=== PATIENT | female | born 1935 | race Caucasian/White ===

== ENCOUNTER 2022-09-24 15:17 | Emergency (ER) | payer MEDICARE ==
--- NOTE | 2022-09-24 15:25 | ERPHSYRPT ---
- History of Present Illness Time Seen by Provider: 09/24/22 15:24 Historian: patient, family Exam Limitations: no limitations Physician History: This is an 87-year-old white female patient of Dr. Gilbert and is a resident at [facility] who was brought to the urgent care center by her daughter because of soreness in her neck and generalized chest. Patient has no diagnosed coronary artery disease but felt the symptoms began this morning. Patient took some Tylenol and there was some mild improvement with the Tylenol. Patient definitely states she does not have chest pain is just a soreness. Patient uses a wheelchair for transportation. Urgent care sent the patient to our emergency department for further evaluation and management. Patient has denied cough. She denies shortness of breath. She denies fever. She has no abdominal pain. Activities at Onset: none Quality: other (Soreness) Location: other (Generalized) Chest Pain Radiation: neck Severity of Pain-Max: mild Severity of Pain-Current: mild Modifying Factors: Improves With: nothing Associated Symptoms: denies symptoms Prior Chest Pain/Cardiac Workup: no prior chest pain Nitro Today/Relief: no nitro taken today Aspirin Treatment Today: no aspirin today Allergies/Adverse Reactions: No Known Drug Allergies Allergy (Unverified 09/24/22 15:20) Travel Risk - International Travel Have you traveled outside of the country in past 3 weeks: No - Coronavirus Screening Are you exhibiting any of the following symptoms?: No Close contact with a COVID-19 positive Pt in past 14-21 Days: No - Review of Systems Constitutional: No Symptoms Eyes: No Symptoms Ears, Nose, & Throat: No Symptoms Respiratory: No Symptoms Cardiac: Chest Pain Abdominal/Gastrointestinal: No Symptoms Genitourinary Symptoms: No Symptoms Musculoskeletal: Neck Pain Skin: No Symptoms Neurological: No Symptoms, Sensory Changes Psychological: No Symptoms Endocrine: No Symptoms Hematologic/Lymphatic: No Symptoms Immunological/Allergic: No Symptoms All Other Systems: Reviewed and Negative - Past Medical History Pertinent Past Medical History: Yes - Nursing Vital Signs Nursing Vital Signs: Initial Vital Signs Temperature 98.6 F 09/24/22 15:18 Pulse Rate 96 H 09/24/22 15:18 Respiratory Rate 17 09/24/22 15:18 Blood Pressure 167/112 09/24/22 15:18 O2 Sat by Pulse Oximetry 98 09/24/22 15:18 Pain Scale Pain Intensity [Chest] 8 Pain Intensity 8 - Physical Exam General Appearance: no apparent distress, alert, anxiety Eye Exam: PERRL/EOMI, eyes nml inspection Ears, Nose, Throat Exam: normal ENT inspection, moist mucous membranes Neck Exam: normal inspection, non-tender, supple, full range of motion Respiratory Exam: normal breath sounds, lungs clear, airway intact, No chest tenderness, No respiratory distress Cardiovascular Exam: regular rate/rhythm, normal heart sounds, normal peripheral pulses Gastrointestinal/Abdomen Exam: soft, normal bowel sounds, No tenderness Pelvic Exam: not done Rectal Exam: not done Back Exam: normal inspection, normal range of motion, No CVA tenderness, No ve rtebral tenderness Extremity Exam: normal inspection, normal range of motion, pelvis stable Neurologic Exam: alert, oriented x 3, cooperative, 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 No acute ischemic changes on today's twelve-lead EKG.) Ordered Tests: Active Orders 24 hr Category Date Time Status Carpet Repairer STAT Care 09/24/22 15:33 Active EKG-ER Only STAT Care 09/24/22 15:33 Active IV Insertion STAT Care 09/24/22 15:33 Active Pulse Oximetry (ED) STAT Care 09/24/22 15:33 Active CHEST 1 VIEW (PORTABLE) Stat Exams 09/24/22 15:33 Taken CHEST WITH CONTRAST [CT] Stat Exams 09/24/22 16:59 Completed CBC W DIFF Stat Lab 09/24/22 15:50 Completed CMP Stat Lab 09/24/22 15:50 Completed D-DIMER QUANTITATIVE Stat Lab 09/24/22 15:50 Completed NT PRO BNPII Stat Lab 09/24/22 15:50 Completed TROPONIN Q4H Lab 09/24/22 15:50 Completed TROPONIN Q4H Lab 09/24/22 19:45 Ordered TROPONIN Q4H Lab 09/24/22 23:45 Ordered Medication Summary Generic Name Dose Route Start Last Admin Trade Name Freq PRN Reason Stop Dose Admin Sodium Chloride 500 mls @ 50 mls/hr 09/24/22 17:00 09/24/22 18:08 Sodium Chloride 0.9% 500 Ml IV 10/24/22 16:59 50 mls/hr .Q10H KOKO Administration Discontinued Medications Generic Name Dose Route Start Last Admin Trade Name Palmira PRN Reason Stop Dose Admin Acetaminophen 650 mg 09/24/22 17:52 09/24/22 18:08 Acetaminophen 325 Mg Tablet PO 09/24/22 17:53 650 mg STAT ONE Administration Acetaminophen Confirm 09/24/22 18:02 Acetaminophen 325 Mg Tablet Administered 09/24/22 18:03 Dose 650 mg .ROUTE .STK-MED ONE Furosemide 40 mg 09/24/22 16:58 09/24/22 18:08 Furosemide 40 Mg/4 Ml Vial IV 09/24/22 16:59 40 mg STAT ONE Administration Furosemide Confirm 09/24/22 18:02 Furosemide 40 Mg/4 Ml Vial Administered 09/24/22 18:03 Dose 40 mg .ROUTE .STK-MED ONE Lab/Rad Data: Laboratory Result Diagrams 09/24/22 15:50 09/24/22 15:50 Laboratory Results 09/24/22 09/24/22 09/24/22 Range/Units 15:50 15:50 15:50 WBC (4.0-10.5) x10^3/uL RBC (4.1-5.4) x10^6/uL Hgb (12.0-16.0) g/dL Hct (35-47) % MCV (78-100) fL MCH (26-32) pg MCHC (32-36) g/dL RDW (11.5-14.0) % Plt Count (150-450) x10^3/uL MPV (7.5-11.0) fL Gran % (36.0-66.0) % Immature Gran % (Auto) (0.00-0.4) % Nucleat RBC Rel Count (0.00-0.1) % Eos # (Auto) (0-0.5) x10^3/uL Immature Gran # (Auto) (0.00-0.03) x10^3u/L Absolute Lymphs (auto) (1.0-4.6) x10^3/uL Absolute Monos (auto) (0.0-1.3) x10^3/uL Absolute Nucleated RBC (0.00-0.01) x10^3u/L Lymphocytes % (24.0-44.0) % Monocytes % (0.0-12.0) % Eosinophils % (0.00-5.0) % Basophils % (0.0-0.4) % Absolute Granulocytes (1.4-6.9) x10^3/uL Basophils # (0-0.4) x10^3/uL D-Dimer 0.77 H* (0.0-0.50) mg/L Sodium (137-145) mmol/L Potassium (3.5-5.1) mmol/L Chloride (98-107) mmol/L Carbon Dioxide (22-30) mmol/L Anion Gap (5-15) MEQ/L BUN (7-17) mg/dL Creatinine (0.52-1.04) mg/dL Estimated GFR ML/MIN Glucose (74-106) mg/dL Calcium (8.4-10.2) mg/dL Total Bilirubin (0.2-1.3) mg/dL AST (14-36) U/L ALT (0-35) U/L Alkaline Phosphatase (38-126) U/L Troponin I < 0.012 (0.000-0.034) ng/mL NT-Pro-B Natriuret Pep 1500 (<300) pg/mL Serum Total Protein (6.3-8.2) g/dL Albumin (3.5-5.0) g/dL 09/24/22 09/24/22 Range/Units 15:50 15:50 WBC 9.5 (4.0-10.5) x10^3/uL RBC 3.93 L (4.1-5.4) x10^6/uL Hgb 12.6 (12.0-16.0) g/dL Hct 39.2 (35-47) % MCV 99.7 (78-100) fL MCH 32.1 H (26-32) pg MCHC 32.1 (32-36) g/dL RDW 13.6 (11.5-14.0) % Plt Count 304 (150-450) x10^3/uL MPV 10.1 (7.5-11.0) fL Gran % 78.4 H (36.0-66.0) % Immature Gran % (Auto) 0.4 (0.00-0.4) % Nucleat RBC Rel Count 0.0 (0.00-0.1) % Eos # (Auto) 0.07 (0-0.5) x10^3/uL Immature Gran # (Auto) 0.04 H (0.00-0.03) x10^3u/L Absolute Lymphs (auto) 1.20 (1.0-4.6) x10^3/uL Absolute Monos (auto) 0.69 (0.0-1.3) x10^3/uL Absolute Nucleated RBC 0.00 (0.00-0.01) x10^3u/L Lymphocytes % 12.6 L (24.0-44.0) % Monocytes % 7.2 (0.0-12.0) % Eosinophils % 0.7 (0.00-5.0) % Basophils % 0.7 (0.0-0.4) % Absolute Granulocytes 7.47 H (1.4-6.9) x10^3/uL Basophils # 0.07 (0-0.4) x10^3/uL D-Dimer (0.0-0.50) mg/L Sodium 138 (137-145) mmol/L Potassium 4.6 (3.5-5.1) mmol/L Chloride 99 (98-107) mmol/L Carbon Dioxide 30 (22-30) mmol/L Anion Gap 14.1 (5-15) MEQ/L BUN 17 (7-17) mg/dL Creatinine 0.89 (0.52-1.04) mg/dL Estimated GFR > 60.0 ML/MIN Glucose 107 H (74-106) mg/dL Calcium 9.3 (8.4-10.2) mg/dL Total Bilirubin 1.00 (0.2-1.3) mg/dL AST 49 H (14-36) U/L ALT 22 (0-35) U/L Alkaline Phosphatase 93 (38-126) U/L Troponin I (0.000-0.034) ng/mL NT-Pro-B Natriuret Pep (<300) pg/mL Serum Total Protein 8.3 H (6.3-8.2) g/dL Albumin 4.6 (3.5-5.0) g/dL - Progress Progress: improved, re-examined Air Movement: good Progress Note: 09/24/22 16:13 This patient's medical issue is 1 of moderate complexity. The level of complexity and the work-up performed is based on the review of the patient's past medical history, review of the patient's medication list, review of the patient's drug allergy list, history of present illness and the findings on physical examination. The work-up includes twelve-lead EKG, chest x-ray, D- dimer, troponin, CBC and CMP. 09/24/22 18:42 Review of the work-up results showed an elevated D-dimer and therefore we ordered a CTA of the chest. The results of this study shows no pulmonary embolus. There is right lung base consolidation probably corresponds to the nodule versus collapse versus infiltrate. We will treat this patient with an antibiotic of Rocephin intravenously followed by outpatient Levaquin for 7 days. Patient is to call her primary care provider to follow-up for further evaluation management. Blood Culture(s) Obtained: No Antibiotics given: Yes Counseled pt/family regarding: lab results, diagnosis, need for follow-up, rad results Medical Desision Making - Independent Historian Additional History obtained from: Child - Diagnostic Testing Diagnostic test were ordered, analyzed, and reviewed by me: Yes Radiological Interpretation: Interpreted by me, Reviewed by me, Teleradiologist Report - Risk of complications The pt has a mod risk of morbidity or mortality based on: Need for prescription drug management - Departure Departure Disposition: Home Clinical Impression: Right lower lobe pulmonary infiltrate Condition: Stable Critical Care Time: No Additional Instructions: Use Tylenol 650 mg orally every 6 hours for pain control. Take the antibiotics as prescribed. Call your primary care provider on 09/24/2022 for follow-up appointment and further management. Return to the emergency department if symptoms worsen Prescriptions: Levofloxacin [Levaquin 500 MG Tablet] 500 mg PO DAILY #7 tablet
[2022-09-24 16:11] LABS: Absolute Neutrophil Ct (ANC) 7.47 x10^3/uL (1.4-6.9); BASOPHIL % 0.7 % (0.0-0.4); Basophil (Absolute #) 0.07 x10^3/uL (0-0.4); Eosinophil % 0.7 % (0.00-5.0); Eosinophil (Absolute #) 0.07 x10^3/uL (0-0.5); Hematocrit 39.2 % (35-47); Hemoglobin 12.6 g/dL (12.0-16.0); IMMATURE GRAN # 0.04 x10^3u/L (0.00-0.03); IMMATURE GRAN % 0.4 % (0.00-0.4); Lymphocytes % 12.6 % (24.0-44.0); Mean Cell Volume 99.7 fL (78-100); Mean Corpuscular Hemoglobin 32.1 pg (26-32); Mean Corpuscular Hgb Concent. 32.1 g/dL (32-36); Mean Platelet Volume 10.1 fL (7.5-11.0); Monocyte (Absolute #) 0.69 x10^3/uL (0.0-1.3); Monocytes % 7.2 % (0.0-12.0); Neutrophil % 78.4 % (36.0-66.0); Platelet Count 304 x10^3/uL (150-450); Red Blood Count 3.93 x10^6/uL (4.1-5.4); Red Cell Distribution Width 13.6 % (11.5-14.0); White Blood Count 9.5 x10^3/uL (4.0-10.5)
[2022-09-24 16:13] LABS: ALBUMIN 4.6 g/dL (3.5-5.0); ALKALINE PHOSPHATASE 93 U/L (38-126); ANION GAP 14.1 MEQ/L (5-15); BLOOD UREA NITROGEN 17 mg/dL (7-17); CHLORIDE 99 mmol/L (98-107); Calcium 9.3 mg/dL (8.4-10.2); Carbon Dioxide 30 mmol/L (22-30); Creatinine 1 0.89 mg/dL (0.52-1.04); EST GLOMERULAR FILTRATION RATE > 60.0 ML/MIN; Glucose 107 mg/dL (74-106); Potassium 4.6 mmol/L (3.5-5.1); SGOT/AST 49 U/L (14-36); SGPT/ALT 22 U/L (0-35); SODIUM 138 mmol/L (137-145); Total Protein 8.3 g/dL (6.3-8.2)
[2022-09-24] MEDS ORDERED: Lasix 40 MG/4 ML IV ONE (16:58)
[2022-09-24] MEDS ORDERED: Sodium Chloride 0.9% 500 ML 500 ML IV SCH (17:00)
[2022-09-24] MEDS ORDERED: TYLENOL 325 MG PO ONE (17:52)
[2022-09-24] MEDS ORDERED: TYLENOL 325 MG ONE (18:02)
[2022-09-24] MEDS ORDERED: Lasix 40 MG/4 ML ONE (18:02)
[2022-09-24] MEDS ORDERED: Sodium Chloride 0.9% 500 ML 500 ML IV ONE (18:02)
[2022-09-24 18:18] VITALS: BP 170/101
--- NOTE | 2022-09-24 18:38 | XRAY ---
CLINICAL HISTORY:CP with elevated D-dimer; COMPARISON:None; TECHNIQUES:Axial CTA images of the chest with intravenous contrast using a pulmonary embolism protocol as per angiographic protocol. 100 cc of Isovue 370 mg was given as IV contrast. Three-dimensional MIP-rendered reformations in Coronal and Sagittal planes were performed, reconstructed and reviewed. CTDI: 52.83 mGy, DLP: 924.51 mGy*cm; FINDINGS: No evidence of central or segmental pulmonary embolism is seen. There is no evidence of aneurysm or dissection of the thoracic aorta. Consolidation in the right lung base measuring 3.2 x 1.5 cm, may probably correspond to nodule vs. collapse/ infiltrate, which requires clinical and laboratory confirmation. IMPRESSION: Negative study for pulmonary embolism. Right lung base consolidation, may probably correspond to nodule vs. collapse/ infiltrate, which requires clinical and laboratory confirmation. Electronically Signed by: Linda Mack MD. ( 09/24/2022 17:29:22 GREY GOODS EXAMINER)
[2022-09-24 19:11] VITALS: PULSE 98; O2SAT 97
--- NOTE | 2022-09-24 20:34 | XRAY ---
Indication: Chest pain. Comparison: None Portable chest inflated and clear. Heart not enlarged. Incidental chunky right paratracheal and smaller bilateral hilar calcified nodes. Bony thorax intact with osteopenia, mild degenerative changes, and mild levoscoliosis. Impression: Nonacute chest with chronic features.
== END 2022-09-24 19:12 | disposition home or self-care (01) ==
LOC: ED 15:17
DX: R91.8 Other nonspecific abnormal finding of lung field (principal); M54.2 Cervicalgia; R79.89 Other specified abnormal findings of blood chemistry; R07.9 Chest pain, unspecified; Z79.899 Other long term (current) drug therapy; Z20.828 Contact with and (suspected) exposure to other viral communicable diseases
CPT/HCPCS: 36000; 36415; 71045; 71260; 80053; 83880; 84484; 85025; 85379; 93005; 93041; 94760; 96374; 99284; J1940; A9270-GY

== ENCOUNTER 2023-12-10 20:51 | Observation (INO) | payer MEDICARE ==
--- NOTE | 2023-12-10 21:22 | ERPHSYRPT ---
- History of Present Illness Time Seen by Provider: 12/10/23 20:58 Source: patient Exam Limitations: no limitations Physician History: Pt states she fell in her bedroom and does not know why she fell; occurred about 1 hour ago. Pt denies chest pain, shortness of air, headache, neck pain, fever, abdominal pain. Allergies/Adverse Reactions: No Known Drug Allergies Allergy (Unverified 05/05/23 10:28) Hx Tetanus, Diphtheria Vaccination/Date Given: No Hx Influenza Vaccination/Date Given: Yes Hx Pneumococcal Vaccination/Date Given: No - Review of Systems Constitutional: No Fever Respiratory: No Dyspnea Cardiac: No Chest Pain Abdominal/Gastrointestinal: No Abdominal Pain, No Nausea, No Vomiting Musculoskeletal: No Back Pain, No Neck Pain Neurological: No Headache - Past Medical History Pertinent Past Medical History: Yes - Past Surgical History Past Surgical History: Yes Other Surgical History: left breast biopsy that was negative - Social History Smoking Status: Never smoker Exposure to second hand smoke: No Drug Use: none Patient Lives Alone: No (lives at [facility]) - Nursing Vital Signs Nursing Vital Signs: Initial Vital Signs Temperature 98 F 12/10/23 20:52 Pulse Rate 97 H 12/10/23 20:52 Respiratory Rate 14 12/10/23 20:52 Blood Pressure 114/95 12/10/23 20:52 O2 Sat by Pulse Oximetry 95 12/10/23 20:52 Pain Scale Pain Intensity 0 - [place] Coma Score Best Eye Response ([place]): (4) open spontaneously Best Verbal Response ([place]): (5) oriented Best Motor Response ([place]): (6) obeys commands [place] Total: 15 - Physical Exam General Appearance: alert Head Injury: no evidence of injury Eye Exam: eyes nml inspection ENT Exam: airway nml, hearing grossly normal Neck Exam: normal inspection, No tenderness Respiratory/Chest Exam: other (Bronchial B.S. over all acuña.) Cardiovascular Exam: No regular rate/rhythm (irregularly irregular rhythm) Gastrointestinal Exam: normal bowel sounds Back Exam: No vertebral tenderness Extremity Exam: normal range of motion Neurologic Exam: alert, cooperative, sensation nml, No motor deficits Skin Exam: warm, dry, other (mild tenderness over bruising over left hip, left knee, lower right leg and left hand.) SpO2 Interpretation: normal SpO2: 95 O2 Delivery: Room Air - Course EKG Interpreted by Me: RATE (99), A-fib, Other (QTc = 452; unifocal PVC's.) - Radiology Exams Left Femur X-ray Interpretation: Interpreted by me, No Fracture Right Lower Leg X-ray Interpretation: Interpreted by me, No Fracture Left Knee X-ray Interpretation: Interpreted by me, No Fracture Chest X-ray Interpretation: Teleradiologist Report (Prominent and coarse bronchovascular markings in both lungs. See rest of report.) Pelvis X-ray Interpretation: Teleradiologist Report (No evidence of fracture in the provided view. See rest of report.) Left Hand X-ray Interpretation: Teleradiologist Report (No acute fracture or disloction is noted.) Ordered Tests: Active Orders 24 hr Category Date Time Status EKG-ER Only STAT Care 12/10/23 21:19 Active IV Insertion STAT Care 12/10/23 21:19 Active CHEST 2 VIEWS (PA AND LAT) Stat Exams 12/10/23 21:19 Completed FEMUR Stat Exams 12/10/23 21:21 Taken HAND (MINIMUM 3 VIEWS) Stat Exams 12/10/23 21:21 Completed KNEE (3 VIEWS) Stat Exams 12/10/23 21:21 Taken LOWER LEG Stat Exams 12/10/23 21:22 Taken PELVIS (1 OR 2 VIEWS) Stat Exams 12/10/23 21:22 Completed AMYLASE Stat Lab 12/10/23 21:47 Completed CBC W DIFF Stat Lab 12/10/23 21:47 Completed CMP Stat Lab 12/10/23 21:47 Completed CULTURE,URINE Stat Lab 12/10/23 21:47 Received LIPASE Stat Lab 12/10/23 21:47 Completed MAGNESIUM Stat Lab 12/10/23 21:47 Completed PROTIME WITH INR Stat Lab 12/10/23 21:47 Completed PTT Stat Lab 12/10/23 21:47 Completed TROPONIN Q4H Lab 12/10/23 21:47 Completed TROPONIN Q4H Lab 12/11/23 01:30 Ordered TROPONIN Q4H Lab 12/11/23 05:30 Ordered UA W/RFX UR CULTURE Stat Lab 12/10/23 21:47 Completed Medication Summary Generic Name Dose Route Start Last Admin Trade Name Freq PRN Reason Stop Dose Admin Sodium Chloride 1,000 mls @ 100 mls/hr 12/10/23 21:30 12/10/23 21:28 Sodium Chloride 0.9% 1000 Ml IV 01/09/24 21:29 100 mls/hr .Q10H KOKO Administration Discontinued Medications Generic Name Dose Route Start Last Admin Trade Name Palmira PRN Reason Stop Dose Admin Sodium Chloride 1,000 mls @ 999 mls/hr 12/10/23 23:36 12/10/23 23:40 Sodium Chloride 0.9% 1000 Ml IV 12/11/23 00:36 Not Given .Q1H1M STA Ceftriaxone Sodium 1 gm in 100 mls @ 200 mls/hr 12/10/23 23:53 12/11/23 00:00 Rocephin 1 Gm / 100 Ml Nacl IV 12/11/23 00:22 200 mls/hr STAT ONE 200 mls/hr Administration Ceftriaxone Sodium Confirm 12/10/23 23:58 Rocephin 1 Gm / 100 Ml Nacl Administered 12/10/23 23:59 Dose 1 gm in 100 mls @ ud IV .STK-MED ONE Lab/Rad Data: Laboratory Result Diagrams 12/10/23 21:47 12/10/23 21:47 Laboratory Results 12/10/23 12/10/23 12/10/23 Range/Units 21:47 21:47 21:47 WBC (3.98-10.04) x10^3/uL RBC (3.93-5.22) x10^6/uL Hgb (11.2-15.7) g/dL Hct (34.1-44.9) % MCV (79.4-94.8) fL MCH (25.6-32.2) pg MCHC (32.2-35.5) g/dL RDW (11.7-14.4) % Plt Count (182-369) x10^3/uL MPV (9.4-12.3) fL Gran % (34.0-71.1) % Immature Gran % (Auto) (0.001-0.429) % Nucleat RBC Rel Count (0.00-0.2) % Eos # (Auto) (0.04-0.36) x10^3/uL Immature Gran # (Auto) (0.001-0.031) x10^3u/L Absolute Lymphs (auto) (1.18-3.74) x10^3/uL Absolute Monos (auto) (0.24-0.86) x10^3/uL Absolute Nucleated RBC (0.00-0.012) x10^3u/L Lymphocytes % (19.3-51.7) % Monocytes % (4.7-12.5) % Eosinophils % (0.7-5.8) % Basophils % (0.1-1.2) % Absolute Granulocytes (1.56-6.13) x10^3/uL Basophils # (0.01-0.08) x10^3/uL PT 11.7 (9.4-12.5) SECONDS INR 1.08 (0.8-3.0) APTT 31.6 (25.1-36.5) SECONDS Sodium (135-145) mmol/L Potassium (3.5-5.1) mmol/L Chloride (98-107) mmol/L Carbon Dioxide (22-30) mmol/L Anion Gap (5-15) MEQ/L BUN (7-17) mg/dL Creatinine (0.52-1.04) mg/dL Estimated GFR ML/MIN Glucose (74-106) mg/dL Calcium (8.4-10.2) mg/dL Magnesium 2.0 (1.6-2.3) mg/dL Total Bilirubin (0.2-1.3) mg/dL AST (14-36) U/L ALT (0-35) U/L Alkaline Phosphatase (38-126) U/L Troponin I < 0.012 (0.000-0.033) ng/mL Serum Total Protein (6.3-8.2) g/dL Albumin (3.5-5.0) g/dL Amylase (30-110) U/L Lipase (23-300) U/L Urine Color (Yellow) Urine Appearance (Clear) Urine pH (4.6-8.0) Ur Specific [place] (1.005-1.030) Urine Protein (Negative) Urine Glucose (UA) (Negative) mg/dL Urine Ketones (Negative) Urine Blood (Negative) Urine Nitrite (Negative) Urine Bilirubin (Negative) Urine Urobilinogen (0.2) mg/dL Ur Leukocyte Esterase (Negative) U Hyaline Cast (Auto) (0-2) /LPF Urine Microscopic RBC (0-5) /HPF Urine Microscopic WBC (0-5) /HPF Ur Epithelial Cells (None Seen) /HPF Urine Bacteria (None Seen) /HPF Urine Culture Reflexed (NO) 12/10/23 12/10/23 12/10/23 Range/Units 21:47 21:47 21:47 WBC 7.4 (3.98-10.04) x10^3/uL RBC 3.23 L (3.93-5.22) x10^6/uL Hgb 10.5 L (11.2-15.7) g/dL Hct 31.7 L (34.1-44.9) % MCV 98.1 H (79.4-94.8) fL MCH 32.5 H (25.6-32.2) pg MCHC 33.1 (32.2-35.5) g/dL RDW 14.3 (11.7-14.4) % Plt Count 302 (182-369) x10^3/uL MPV 10.1 (9.4-12.3) fL Gran % 68.3 (34.0-71.1) % Immature Gran % (Auto) 0.3 (0.001-0.429) % Nucleat RBC Rel Count 0.0 (0.00-0.2) % Eos # (Auto) 0.13 (0.04-0.36) x10^3/uL Immature Gran # (Auto) 0.02 (0.001-0.031) x10^3u/L Absolute Lymphs (auto) 1.45 (1.18-3.74) x10^3/uL Absolute Monos (auto) 0.67 (0.24-0.86) x10^3/uL Absolute Nucleated RBC 0.00 (0.00-0.012) x10^3u/L Lymphocytes % 19.6 (19.3-51.7) % Monocytes % 9.1 (4.7-12.5) % Eosinophils % 1.8 (0.7-5.8) % Basophils % 0.9 (0.1-1.2) % Absolute Granulocytes 5.04 (1.56-6.13) x10^3/uL Basophils # 0.07 (0.01-0.08) x10^3/uL PT (9.4-12.5) SECONDS INR (0.8-3.0) APTT (25.1-36.5) SECONDS Sodium 136 (135-145) mmol/L Potassium 4.1 (3.5-5.1) mmol/L Chloride 101 (98-107) mmol/L Carbon Dioxide 26 (22-30) mmol/L Anion Gap 13.5 (5-15) MEQ/L BUN 24 H (7-17) mg/dL Creatinine 1.38 H (0.52-1.04) mg/dL Estimated GFR 36.6 ML/MIN Glucose 110 H (74-106) mg/dL Calcium 9.6 (8.4-10.2) mg/dL Magnesium (1.6-2.3) mg/dL Total Bilirubin 1.90 H (0.2-1.3) mg/dL AST 40 H (14-36) U/L ALT 24 (0-35) U/L Alkaline Phosphatase 88 (38-126) U/L Troponin I (0.000-0.033) ng/mL Serum Total Protein 7.3 (6.3-8.2) g/dL Albumin 4.2 (3.5-5.0) g/dL Amylase 74 (30-110) U/L Lipase 143 (23-300) U/L Urine Color Yellow (Yellow) Urine Appearance Clear (Clear) Urine pH 6.5 (4.6-8.0) Ur Specific [place] 1.010 (1.005-1.030) Urine Protein Negative (Negative) Urine Glucose (UA) Negative (Negative) mg/dL Urine Ketones Negative (Negative) Urine Blood Small A (Negative) Urine Nitrite Negative (Negative) Urine Bilirubin Negative (Negative) Urine Urobilinogen 0.2 (0.2) mg/dL Ur Leukocyte Esterase Negative (Negative) U Hyaline Cast (Auto) 3-5 A (0-2) /LPF Urine Microscopic RBC 11-20 A (0-5) /HPF Urine Microscopic WBC 0-2 (0-5) /HPF Ur Epithelial Cells Rare (None Seen) /HPF Urine Bacteria None Seen (None Seen) /HPF Urine Culture Reflexed YES (NO) - Progress Progress: improved Counseled pt/family regarding: lab results, diagnosis, need for follow-up, rad results Medical Desision Making - Diagnostic Testing Diagnostic test were ordered, analyzed, and reviewed by me: Yes Radiological Interpretation: Teleradiologist Report - Departure Departure Disposition: Home Clinical Impression: Bronchitis, Fall, Multiple Contusions Condition: Stable Critical Care Time: No Referrals: STEPHEN BELLA DO [Primary Care Provider] - Follow up/PCP as directed Instructions: Acute bronchitis in adults, Contusion (DC), Preventing falls in adults Additional Instructions: Follow up with private doctor tomorrow,. Prescriptions: Cefpodoxime Proxetil 200 mg [Vantin 200 mg] 200 mg PO BID #20 tablet
[2023-12-10] MEDS ORDERED: Sodium Chloride 0.9% 1000 ML 1,000 ML ONE (21:27)
[2023-12-10] MEDS: Sodium Chloride 0.9% 1000 ML 1,000 ML IV SCH (21:28)
[2023-12-10 21:53] LABS: Absolute Neutrophil Ct (ANC) 5.04 x10^3/uL (1.56-6.13); BASOPHIL % 0.9 % (0.1-1.2); Basophil (Absolute #) 0.07 x10^3/uL (0.01-0.08); Eosinophil % 1.8 % (0.7-5.8); Eosinophil (Absolute #) 0.13 x10^3/uL (0.04-0.36); Hematocrit 31.7 % (34.1-44.9); Hemoglobin 10.5 g/dL (11.2-15.7); IMMATURE GRAN # 0.02 x10^3u/L (0.001-0.031); IMMATURE GRAN % 0.3 % (0.001-0.429); Lymphocyte (Absolute #) 1.45 x10^3/uL (1.18-3.74); Lymphocytes % 19.6 % (19.3-51.7); Mean Cell Volume 98.1 fL (79.4-94.8); Mean Corpuscular Hemoglobin 32.5 pg (25.6-32.2); Mean Corpuscular Hgb Concent. 33.1 g/dL (32.2-35.5); Mean Platelet Volume 10.1 fL (9.4-12.3); Monocyte (Absolute #) 0.67 x10^3/uL (0.24-0.86); Monocytes % 9.1 % (4.7-12.5); Neutrophil % 68.3 % (34.0-71.1); Platelet Count 302 x10^3/uL (182-369); Red Blood Count 3.23 x10^6/uL (3.93-5.22); Red Cell Distribution Width 14.3 % (11.7-14.4); White Blood Count 7.4 x10^3/uL (3.98-10.04)
[2023-12-10 22:00] LABS: Appearance Clear (Clear); Bacteria None Seen /HPF (None Seen); Bilirubin Negative (Negative); Blood Small (Negative); Epithelial Cells Rare /HPF (None Seen); Glucose, Urine Negative (Negative); Ketones Negative (Negative); Leukocyte Esterase Negative (Negative); Nitrite Negative (Negative); Ph 6.5 (4.6-8.0); Protein,Urine Dip Negative (Negative); Urobilinogen 0.2 mg/dL (0.2); WBC 0-2 /HPF (0-5)
[2023-12-10 22:03] LABS: ADD URINE CULTURE? YES (NO)
[2023-12-10 22:07] LABS: ALBUMIN 4.2 g/dL (3.5-5.0); ANION GAP 13.5 MEQ/L (5-15); BILIRUBIN,TOTAL 1.9 mg/dL (0.2-1.3); Calcium 9.6 mg/dL (8.4-10.2); Creatinine 1 1.38 mg/dL (0.52-1.04); EST GLOMERULAR FILTRATION RATE 36.6 ML/MIN; Potassium 4.1 mmol/L (3.5-5.1); Total Protein 7.3 g/dL (6.3-8.2)
[2023-12-10 22:09] LABS: INR 1.08 (0.8-3.0); PROTIME 11.7 SECONDS (9.4-12.5); PTT 31.6 SECONDS (25.1-36.5)
[2023-12-10] MEDS: Sodium Chloride 0.9% 1000 ML 1,000 ML IV STA (23:40)
--- NOTE | 2023-12-10 23:40 | XRAY ---
CLINICAL HISTORY: fall COMPARISON: 09/24/2022 CT. TECHNIQUE: X-ray examination of the chest is performed in PA and lateral view. FINDINGS: Prominent and coarse bronchovascular markings in both lungs. Hilar and right paratracheal calcific foci. Could represent calcified lymph nodes. Enlarged heart size, Cardiophrenic and costophrenic angles are clear. Retrocardiac and retrosternal space is normal. Visualized bones are intact. Moderate thoracic spondylosis with mild kyphosis and wedging of mid-thoracic spine. IMPRESSION: Visualized bones are intact in this view. Other views may be suggested if clinically indicated. Enlarged heart size. Prominent and coarse bronchovascular markings in both lungs. Electronically Signed by: Linda Mack MD. (12/10/2023 23:36:05 EDT)
[2023-12-10] MEDS ORDERED: ROCEPHIN 1 GM / 100 ML NaCl 1 GM/100 ML IVPB IV ONE (23:58)
[2023-12-11] MEDS: ROCEPHIN 1 GM / 100 ML NaCl 1 GM/100 ML IVPB IV ONE
--- NOTE | 2023-12-11 00:22 | XRAY ---
CLINICAL HISTORY: fall COMPARISON: None. TECHNIQUE: X-ray pelvis 1 AP view FINDINGS: No evidence of acute fracture was seen. Degenerative changes, osteoarthritic changes in the left hip joint. Few small rounded radio opacities are seen in the pelvis, some have internal fat components, suggestive of phleboliths. Normal bones. Normal joints. No neoplastic mass. No lytic or sclerosis bone lesion. IMPRESSION: 1. No evidence of acute fracture in the provided view. 2. 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 3. Few small rounded radio opacities are seen in the pelvis, some have internal fat components, suggesting phleboliths. DISCLAIMER:A subtle bone abnormality or fracture may not be readily apparent on X-rays, thus clinical correlation and further imaging including follow-up CT, MRI, or follow-up X-rays are advised as needed. Electronically Signed by: Linda Mack MD. (12/11/2023 00:18:42 EDT)
--- NOTE | 2023-12-11 00:24 | XRAY ---
CLINICAL HISTORY: fall COMPARISON: None. TECHNIQUE: X-ray of the left hand was done in AP, oblique and lateral views. FINDINGS: Normal bone density is seen. Intact visualized joint spaces. No definite fracture line or subluxation is seen. Moderate degenerative changes are seen in the visualized bones predominantly in the first carpometacarpal joint and in the visualized interphalangeal joints.. No significant soft tissue swelling is seen. IMPRESSION: 1. No acute fracture or dislocation is noted. 2. Moderate degenerative changes in the visualized bones. 3. There is mild dislocation which is due to extensive degenerative changes. DISCLAIMER:A subtle bone abnormality or fracture may not be readily apparent on x-rays, thus clinical correlation and further imaging including follow up CT, MRI, or follow up x-rays are advised as needed. Electronically Signed by: Linda Mack MD. (12/11/2023 00:20:46 EDT)
[2023-12-11] MEDS ORDERED: Cardizem IV 50 MG/10 ML IV ONE (02:18)
[2023-12-11] MEDS: Cardizem IV 50 MG/10 ML IV ONE (02:19)
[2023-12-11] MEDS ORDERED: Sodium Chloride 0.9% 1000 ML 1,000 ML ONE (05:05)
[2023-12-11] MEDS: Sodium Chloride 0.9% 1000 ML 1,000 ML IV SCH (05:07)
[2023-12-11] MEDS: CARDIZEM DRIP 100 MG/100 ML D5W 100 ML IV PRN (06:00)
[2023-12-11] MEDS ORDERED: MAGNESIUM OXIDE 200 MG PO SCH (06:15)
[2023-12-11 06:45] LABS: Hematocrit 32.5 % (34.1-44.9); Hemoglobin 10.5 g/dL (11.2-15.7); Mean Cell Volume 100.6 fL (79.4-94.8); Mean Corpuscular Hemoglobin 32.5 pg (25.6-32.2); Mean Corpuscular Hgb Concent. 32.3 g/dL (32.2-35.5); Mean Platelet Volume 10.1 fL (9.4-12.3); Platelet Count 268 x10^3/uL (182-369); Red Blood Count 3.23 x10^6/uL (3.93-5.22); Red Cell Distribution Width 14.2 % (11.7-14.4); White Blood Count 6.6 x10^3/uL (3.98-10.04)
[2023-12-11] MEDS: Lopressor 25MG Tab PO SCH ×3 (07:26→19:39)
[2023-12-11 07:41] LABS: ANION GAP 13.8 MEQ/L (5-15); Calcium 8.9 mg/dL (8.4-10.2); Creatinine 1 1.09 mg/dL (0.52-1.04); EST GLOMERULAR FILTRATION RATE 48.6 ML/MIN; MAGNESIUM 1.9 mg/dL (1.6-2.3); PREALBUMIN 20.84 mg/dL (17.6-36.0); Potassium 3.7 mmol/L (3.5-5.1); TSH, 3RD Generation 3.324 mIU/L (0.470-4.680)
--- NOTE | 2023-12-11 08:42 | XRAY ---
Indication: Pain following fall. Comparison: None 3 view left knee demonstrates osteopenia, minimal medial degenerative joint space narrowing/spurring, and incidental tiny posterior fabella. No other bony, articular, or soft tissue abnormalities.
--- NOTE | 2023-12-11 08:44 | XRAY ---
Indication: Pain following fall. Comparison: None 2 view left femur demonstrates osteopenia, moderate hip/minimal knee degenerative arthropathy, and incidental tiny posterior knee fabella. No other bony, articular, or soft tissue abnormalities.
--- NOTE | 2023-12-11 08:44 | XRAY ---
Indication: Pain following fall. Comparison: None 2 view right lower leg demonstrates osteopenia, mild knee degenerative arthropathy, and incidental small posterior knee fabella. No other bony, articular, or soft tissue abnormalities.
[2023-12-11] MEDS: Pepcid 20 MG PO SCH (09:24)
[2023-12-11] MEDS: FOLATE 1 MG PO SCH (09:24)
[2023-12-11] MEDS: ELIQUIS 2.5 MG TABLET PO SCH (09:24)
[2023-12-11] MEDS: MAG-OX 400 PO SCH (09:24)
[2023-12-11] MEDS: ZOLOFT 50 MG TABLET PO SCH (09:24)
[2023-12-11] MEDS: Lasix 20 MG/2 ML IV SCH (09:25)
[2023-12-11] MEDS: PLAVIX Tablet PO SCH (09:25)
[2023-12-11] MEDS: Klor Con PO SCH (09:25)
[2023-12-11] MEDS ORDERED: NON-FORMULARY ITEM (Sertraline Hcl [Zoloft] 25 MG Tablet) PO SCH (10:00)
[2023-12-11] MEDS ORDERED: DEMADEX 20 MG PO SCH (10:00)
[2023-12-11] MEDS ORDERED: NON-FORMULARY ITEM (Torsemide [Torsemide] 10 MG Tablet) PO SCH (10:00)
--- NOTE | 2023-12-11 11:04 | PCM.CONS ---
History of Present Illness - Date of Consult Date of Encounter: 12/11/23 Consulting Technical Rep: FER CLARK MD Requesting Provider: Attending Provider: JUSTEN RUSHING MD Primary Care Provider: PCP: STEPHEN BELLA DO Consent was: Given for this tele-med encounter - Consult Narrative Reason for Consult: atrial fibrillation wtih rvr HPI: Patient is a 88F with a history of Atrial fibrillation, chronic, not on anticoagulation presenting to the hospital with shortness of breath. She was found to be in AFRVR. She was started on a diltiazem gtt. Rates are now better in the 60s. Remains in Afib at the moment. Says that she had chest pain and shortness of breath earlier but that has improved. Her dizziness and lightheadedness have also improved. who denies fevers, chills, nausea, vomiting, diarrhea, syncope, presyncope, dysphagia,odynophagia, orthopnea, paroxysmal nocturnal dyspnea, shortness of breath, chest pain, refluxsymptoms, belly pain, dysuria, hematuria, melena, hematochezia, seizures, paralysis, or other neurological changes. All other systems have been reviewed and are negative. cc:: The requesting physician will be sent a copy of the consult. - Past Medical History Past Medical History: Yes Neurological History: Dementia ENT History: Cataracts Cardiac History: Arrhythmia, Congestive Heart Failure, High Cholesterol, Hypertension Respiratory History: Pneumonia Endocrine Medical History: No Pertinent History Musculoskelatal History: No Pertinent History GI Medical History: GERD History: Renal Disease Pyscho-Social History: No Pertinent History Reproductive Disorders: No Pertinent History Comment: a fib - Past Surgical History Past Surgical History: Yes Neuro Surgical History: No Pertinent History Cardiac History: No Pertinent History Respiratory Surgery: No Pertinent History GI Surgical History: No Pertinent History Genitourinary Surgical Hx: No Pertinent History Musculskeletal Surgical Hx: No Pertinent History Female Surgical History: Lumpectomy Other Surgical History: left breast biopsy that was negative - Social History Smoking Status: Former smoker Exposure to second hand smoke: No Alcohol: None Drug Use: none - Social Determinants of Health Will the patient participate in the screening: Yes Do you worry about a steady place to live?: No Do you have any problems with any of the following?: No known problems In the past 12 months,have you had to go without utilities?: No Have you or anyone in your house had to go without enough: No Transportation Issues: No Has anyone in your support network made you feel unsafe?: No Does the patient want assistance with any of the above?: No Medications & Allergies Home Medications: Home Medication List Acetaminophen 325 mg [Tylenol 325 mg] 650 mg PO Q6H PRN 12/11/23 [History Confirmed 12/11/23] Albuterol Common Canister [Ventolin Common Canister] 2 puffs IH BID 12/11/23 [History Confirmed 12/11/23] Apixaban [Eliquis 2.5 mg Tablet] 2.5 mg PO BID 12/11/23 [History Confirmed 12/11/23] Cholecalciferol (Vitamin D3) [Vitamin D3] 25 mcg PO DAILY 12/11/23 [History Confirmed 12/11/23] Clopidogrel Bisulfate [Plavix] 0.5 tab PO DAILY 12/11/23 [History Confirmed 12/11/23] Famotidine [Pepcid] 20 mg PO BID 12/11/23 [History Confirmed 12/11/23] Folic Acid 1 tab PO DAILY 12/11/23 [History Confirmed 12/11/23] Magnesium Oxide [Mag-Oxide] 400 mg PO UD 12/11/23 [History Confirmed 12/11/23] Metoprolol Succinate 25 mg Xl* [Toprol-Xl 25MG Tablets] 25 mg PO DAILY 12/11/23 [History Confirmed 12/11/23] Multivit-Min/FA/Lycopen/Lutein [Centrum Silver Tablet] 1 each PO DAILY 12/11/23 [History Confirmed 12/11/23] Potassium Chloride [Klor-Con 10] 10 mg PO BID 12/11/23 [History Confirmed 12/11/23] Rosuvastatin Calcium 5 mg PO HS 12/11/23 [History Confirmed 12/11/23] Sertraline HCl [Zoloft] 1 tab PO DAILY 12/11/23 [History Confirmed 12/11/23] Torsemide 10 mg PO DAILY 12/11/23 [History Confirmed 12/11/23] Ubidecarenone [Co Q-10] 200 mg PO DAILY 12/11/23 [History Confirmed 12/11/23] Allergies/Adverse Reactions: Allergies Allergy/AdvReac Type Severity Reaction Status Date / Time No Known Drug Allergies Allergy Unverified 05/05/23 10:28 Exam - Vitals Vital Signs: Vital Signs - 24 hr Temp Pulse Resp BP BP Pulse Ox 12/11/23 10:34 60 32 H 108/77 98 12/11/23 10:32 59 L 29 H 114/85 12/11/23 10:11 72 28 H 114/85 12/11/23 10:01 68 26 H 114/85 98 12/11/23 09:01 78 29 H 118/72 96 12/11/23 08:24 82 24 138/73 83 L 12/11/23 08:18 103 H 29 H 138/73 12/11/23 08:00 98.0 F 106 H 26 H 111/77 12/11/23 07:50 106 H 12/11/23 07:01 96 H 28 H 113/86 73 L 12/11/23 07:00 95 H 26 H 111/77 12/11/23 06:55 98 12/11/23 06:00 113 H 27 H 136/82 12/11/23 05:50 99 12/11/23 05:00 113 H 12/11/23 04:54 97.5 F 113 H 30 H 136/82 98 12/11/23 04:00 93 H 22 119/87 97 12/11/23 03:30 102 H 29 H 122/74 96 12/11/23 03:18 98 H 30 H 131/83 93 L 12/11/23 01:31 120 H 21 114/92 94 L 12/11/23 01:06 95 12/11/23 01:01 131 H 35 H 134/100 93 L 12/11/23 00:30 120 H 26 H 107/75 95 12/10/23 23:31 118 H 20 145/77 96 12/10/23 23:00 111 H 15 137/89 94 L 12/10/23 22:51 115 H 19 136/71 96 12/10/23 20:52 98 F 97 H 14 114/95 95 General:: alert and oriented x 4, no acute distress HEENT: PERRLA, EOMI Cardiovascular Exam: irregular Respiratory Exam: crackles/rales SpO2: 98 Oxygen Delivery: Nasal Cannula Gastrointestinal/Abdomen Exam: soft Results Vital Signs: Vital Signs - 24 hr Temp Pulse Resp BP BP Pulse Ox 12/11/23 10:34 60 32 H 108/77 98 12/11/23 10:32 59 L 29 H 114/85 12/11/23 10:11 72 28 H 114/85 12/11/23 10:01 68 26 H 114/85 98 12/11/23 09:01 78 29 H 118/72 96 12/11/23 08:24 82 24 138/73 83 L 12/11/23 08:18 103 H 29 H 138/73 12/11/23 08:00 98.0 F 106 H 26 H 111/77 12/11/23 07:50 106 H 12/11/23 07:01 96 H 28 H 113/86 73 L 12/11/23 07:00 95 H 26 H 111/77 12/11/23 06:55 98 12/11/23 06:00 113 H 27 H 136/82 12/11/23 05:50 99 12/11/23 05:00 113 H 12/11/23 04:54 97.5 F 113 H 30 H 136/82 98 12/11/23 04:00 93 H 22 119/87 97 12/11/23 03:30 102 H 29 H 122/74 96 12/11/23 03:18 98 H 30 H 131/83 93 L 12/11/23 01:31 120 H 21 114/92 94 L 12/11/23 01:06 95 12/11/23 01:01 131 H 35 H 134/100 93 L 12/11/23 00:30 120 H 26 H 107/75 95 12/10/23 23:31 118 H 20 145/77 96 12/10/23 23:00 111 H 15 137/89 94 L 12/10/23 22:51 115 H 19 136/71 96 12/10/23 20:52 98 F 97 H 14 114/95 95 Pain Assessment - Last Documented Pain Intensity 0 Intake and Output: Intake & Output 12/08/23 12/09/23 12/10/23 12/11/23 11:59 11:59 11:59 11:59 Output Total 300 Balance -300 Weight 69.9 kg LAB: I have reviewed the Labs in [facility]. Radiology Exams: Radiology Procedures Category Date Time Status CHEST 2 VIEWS (PA AND LAT) Stat Exams 12/10/23 21:19 Completed FEMUR Stat Exams 12/10/23 21:21 Completed HAND (MINIMUM 3 VIEWS) Stat Exams 12/10/23 21:21 Completed KNEE (3 VIEWS) Stat Exams 12/10/23 21:21 Completed LOWER LEG Stat Exams 12/10/23 21:22 Completed PELVIS (1 OR 2 VIEWS) Stat Exams 12/10/23 21:22 Completed Assessment & Plan (1) Chronic atrial fibrillation with rapid ventricular response Current Visit: Yes Status: Acute Assessment & Plan: CHADS-VASC = 5. - Recommend starting apixaban 2.5 mg BID if no concern for falls - Start metoprolol tartrate 25 mg PO BID - Decrease diltiazem gtt and shut off if HR< 100 - Obtain echocardiogram - HR likely to improve with diuresis as below Code(s): I48.20 - CHRONIC ATRIAL FIBRILLATION, UNSPECIFIED (2) Volume overload Current Visit: Yes Status: Acute Assessment & Plan: Likely diastolic dysfunction and rapid atrial fibrillation - continue IV Lasix 20 mg bid - Rate control as above - obtain echocardiogram Code(s): E87.70 - FLUID OVERLOAD, UNSPECIFIED - Encounter Encounter: "The entirety of this encounter was performed via Telemedicine using audio and visual "
--- NOTE | 2023-12-11 12:49 | PCM.HP ---
History of Present Illness - Chief Complaint Chief Complaint: A. Fib with RVR Date: 12/11/23 History of Present Illness: is a 88 year old female with PMHX of dementia, arrythmia, cataracts, CHF, hyperlipidemia, HTN, GERD, A-fib, and lumpectomy. She lives at [facility]. Pt states she fell in her bedroom and does not know why she fell; occurred on 12/10/23. In ER she was found to be in A-fib RVR and gave cardizem IV and metoprolol, then started on a cardizem gtt. She was given 1 L fluid bolus and then IVF started. Rocephin was started for bronchitis. She had multiple XR's in ER no acute concerns seen. CXR did show bronchitis, lung sounds are clear, but she is having some SOB. She is on 2LNC at 97%. Baseline is room air. Will continue breathing treatments. Currently HR has improved to 70s, on cardizem gtt this AM. Gtt weaned off around 11:00 am. She continues to have A- fib which is chronic for her but no longer RVR. Will continue with IV lasix. She denies CP, Abd. pain, N/V/D. - Review of Systems Constitutional: No Fever, No Chills Eyes: No Symptoms Ears, Nose, & Throat: No Symptoms Respiratory: Short Of Breath, No Cough Cardiac: No Chest Pain, No Edema, No Syncope Abdominal/Gastrointestinal: No Abdominal Pain, No Nausea, No Vomiting, No Diarrhea Genitourinary Symptoms: No Dysuria Musculoskeletal: No Back Pain, No Neck Pain Skin: No Rash Neurological: Other (confusion), No Dizziness, No Focal Weakness, No Sensory Changes Psychological: No Symptoms Endocrine: No Symptoms Hematologic/Lymphatic: No Symptoms Immunological/Allergic: No Symptoms Medications & Allergies Home Medications: Home Medication List Acetaminophen 325 mg [Tylenol 325 mg] 650 mg PO Q6H PRN 12/11/23 [History Confirmed 12/11/23] Albuterol Common Canister [Ventolin Common Canister] 2 puffs IH BID 12/11/23 [History Confirmed 12/11/23] Apixaban [Eliquis 2.5 mg Tablet] 2.5 mg PO BID 12/11/23 [History Confirmed 12/11/23] Cholecalciferol (Vitamin D3) [Vitamin D3] 25 mcg PO DAILY 12/11/23 [History Confirmed 12/11/23] Clopidogrel Bisulfate [Plavix] 0.5 tab PO DAILY 12/11/23 [History Confirmed 12/11/23] Famotidine [Pepcid] 20 mg PO BID 12/11/23 [History Confirmed 12/11/23] Folic Acid 1 tab PO DAILY 12/11/23 [History Confirmed 12/11/23] Magnesium Oxide [Mag-Oxide] 400 mg PO UD 12/11/23 [History Confirmed 12/11/23] Metoprolol Succinate 25 mg Xl* [Toprol-Xl 25MG Tablets] 25 mg PO DAILY 12/11/23 [History Confirmed 12/11/23] Multivit-Min/FA/Lycopen/Lutein [Centrum Silver Tablet] 1 each PO DAILY 12/11/23 [History Confirmed 12/11/23] Potassium Chloride [Klor-Con 10] 10 mg PO BID 12/11/23 [History Confirmed 12/11/23] Rosuvastatin Calcium 5 mg PO HS 12/11/23 [History Confirmed 12/11/23] Sertraline HCl [Zoloft] 1 tab PO DAILY 12/11/23 [History Confirmed 12/11/23] Torsemide 10 mg PO DAILY 12/11/23 [History Confirmed 12/11/23] Ubidecarenone [Co Q-10] 200 mg PO DAILY 12/11/23 [History Confirmed 12/11/23] Allergies/Adverse Reactions: Allergies Allergy/AdvReac Type Severity Reaction Status Date / Time No Known Drug Allergies Allergy Unverified 05/05/23 10:28 - Past Medical History Past Medical History: Yes Neurological History: Dementia ENT History: Cataracts Cardiac History: Arrhythmia, Congestive Heart Failure, High Cholesterol, Hypertension Respiratory History: Pneumonia Endocrine Medical History: No Pertinent History Musculoskelatal History: No Pertinent History GI Medical History: GERD History: Renal Disease Pyscho-Social History: No Pertinent History Reproductive Disorders: No Pertinent History Comment: a fib - Past Surgical History Past Surgical History: Yes Neuro Surgical History: No Pertinent History Cardiac History: No Pertinent History Respiratory Surgery: No Pertinent History GI Surgical History: No Pertinent History Genitourinary Surgical Hx: No Pertinent History Musculskeletal Surgical Hx: No Pertinent History Female Surgical History: Lumpectomy Other Surgical History: left breast biopsy that was negative - Social History Smoking Status: Former smoker Exposure to second hand smoke: No Alcohol: None Drug Use: none - Social Determinants of Health Will the patient participate in the screening: Yes Do you worry about a steady place to live?: No Do you have any problems with any of the following?: No known problems In the past 12 months,have you had to go without utilities?: No Have you or anyone in your house had to go without enough: No Transportation Issues: No Has anyone in your support network made you feel unsafe?: No Does the patient want assistance with any of the above?: No - Physical Exam Vital Signs: Vital Signs - 24 hr Temp Pulse Resp BP BP Pulse Ox 12/11/23 12:00 98.0 F 79 31 H 124/66 99 12/11/23 11:05 98 12/11/23 11:00 76 32 H 114/63 98 12/11/23 10:34 60 32 H 108/77 98 12/11/23 10:32 59 L 29 H 114/85 12/11/23 10:11 72 28 H 114/85 12/11/23 10:01 68 26 H 114/85 98 12/11/23 09:01 78 29 H 118/72 96 12/11/23 08:24 82 24 138/73 83 L 12/11/23 08:18 103 H 29 H 138/73 12/11/23 08:00 98.0 F 106 H 26 H 111/77 12/11/23 07:50 106 H 12/11/23 07:01 96 H 28 H 113/86 73 L 12/11/23 07:00 95 H 26 H 111/77 12/11/23 06:55 98 12/11/23 06:00 113 H 27 H 136/82 12/11/23 05:50 99 12/11/23 05:00 113 H 12/11/23 04:54 97.5 F 113 H 30 H 136/82 98 12/11/23 04:00 93 H 22 119/87 97 12/11/23 03:30 102 H 29 H 122/74 96 12/11/23 03:18 98 H 30 H 131/83 93 L 12/11/23 01:31 120 H 21 114/92 94 L 12/11/23 01:06 95 12/11/23 01:01 131 H 35 H 134/100 93 L 12/11/23 00:30 120 H 26 H 107/75 95 12/10/23 23:31 118 H 20 145/77 96 12/10/23 23:00 111 H 15 137/89 94 L 12/10/23 22:51 115 H 19 136/71 96 12/10/23 20:52 98 F 97 H 14 114/95 95 General Appearance: no apparent distress, alert Neurologic Exam: alert, cooperative, normal mood/affect, nml cerebellar function, sensation nml, confusion, motor weakness, No motor deficits Eye Exam: PERRL/EOMI, eyes nml inspection Ears, Nose, Throat Exam: normal ENT inspection, TMs normal, pharynx normal, moist mucous membranes Neck Exam: normal inspection, non-tender, supple, full range of motion Respiratory Exam: normal breath sounds, lungs clear, No respiratory distress Cardiovascular Exam: normal heart sounds, normal peripheral pulses, irregular, edema (BLLE) Gastrointestinal/Abdomen Exam: soft, normal bowel sounds, No tenderness, No mass Back Exam: normal inspection, normal range of motion, No CVA tenderness, No vertebral tenderness Extremity Exam: normal inspection, normal range of motion, pelvis stable Skin Exam: normal color, warm, dry, No rash Lymphatic Exam: No adenopathy Results - Labs Lab/Micro Results: Lab Results-Last 24 Hours 12/10/23 12/10/23 12/10/23 Range/Units 21:47 21:47 21:47 WBC 7.4 (3.98-10.04) x10^3/uL RBC 3.23 L (3.93-5.22) x10^6/uL Hgb 10.5 L (11.2-15.7) g/dL Hct 31.7 L (34.1-44.9) % MCV 98.1 H (79.4-94.8) fL MCH 32.5 H (25.6-32.2) pg MCHC 33.1 (32.2-35.5) g/dL RDW 14.3 (11.7-14.4) % Plt Count 302 (182-369) x10^3/uL MPV 10.1 (9.4-12.3) fL Gran % 68.3 (34.0-71.1) % Immature Gran % (Auto) 0.3 (0.001-0.429) % Nucleat RBC Rel Count 0.0 (0.00-0.2) % Eos # (Auto) 0.13 (0.04-0.36) x10^3/uL Immature Gran # (Auto) 0.02 (0.001-0.031) x10^3u/L Absolute Lymphs (auto) 1.45 (1.18-3.74) x10^3/uL Absolute Monos (auto) 0.67 (0.24-0.86) x10^3/uL Absolute Nucleated RBC 0.00 (0.00-0.012) x10^3u/L Lymphocytes % 19.6 (19.3-51.7) % Monocytes % 9.1 (4.7-12.5) % Eosinophils % 1.8 (0.7-5.8) % Basophils % 0.9 (0.1-1.2) % Absolute Granulocytes 5.04 (1.56-6.13) x10^3/uL Basophils # 0.07 (0.01-0.08) x10^3/uL PT (9.4-12.5) SECONDS INR (0.8-3.0) APTT (25.1-36.5) SECONDS Sodium 136 (135-145) mmol/L Potassium 4.1 (3.5-5.1) mmol/L Chloride 101 (98-107) mmol/L Carbon Dioxide 26 (22-30) mmol/L Anion Gap 13.5 (5-15) MEQ/L BUN 24 H (7-17) mg/dL Creatinine 1.38 H (0.52-1.04) mg/dL Estimated GFR 36.6 ML/MIN Glucose 110 H (74-106) mg/dL Calcium 9.6 (8.4-10.2) mg/dL Magnesium (1.6-2.3) mg/dL Total Bilirubin 1.90 H (0.2-1.3) mg/dL AST 40 H (14-36) U/L ALT 24 (0-35) U/L Alkaline Phosphatase 88 (38-126) U/L Troponin I (0.000-0.033) ng/mL Serum Total Protein 7.3 (6.3-8.2) g/dL Albumin 4.2 (3.5-5.0) g/dL Prealbumin (17.6-36.0) mg/dL Amylase 74 (30-110) U/L Lipase 143 (23-300) U/L TSH 3rd Generation (0.470-4.680) mIU/L Urine Color Yellow (Yellow) Urine Appearance Clear (Clear) Urine pH 6.5 (4.6-8.0) Ur Specific [place] 1.010 (1.005-1.030) Urine Protein Negative (Negative) Urine Glucose (UA) Negative (Negative) mg/dL Urine Ketones Negative (Negative) Urine Blood Small A (Negative) Urine Nitrite Negative (Negative) Urine Bilirubin Negative (Negative) Urine Urobilinogen 0.2 (0.2) mg/dL Ur Leukocyte Esterase Negative (Negative) U Hyaline Cast (Auto) 3-5 A (0-2) /LPF Urine Microscopic RBC 11-20 A (0-5) /HPF Urine Microscopic WBC 0-2 (0-5) /HPF Ur Epithelial Cells Rare (None Seen) /HPF Urine Bacteria None Seen (None Seen) /HPF Urine Culture Reflexed YES (NO) 12/10/23 12/10/23 12/10/23 Range/Units 21:47 21:47 21:47 WBC (3.98-10.04) x10^3/uL RBC (3.93-5.22) x10^6/uL Hgb (11.2-15.7) g/dL Hct (34.1-44.9) % MCV (79.4-94.8) fL MCH (25.6-32.2) pg MCHC (32.2-35.5) g/dL RDW (11.7-14.4) % Plt Count (182-369) x10^3/uL MPV (9.4-12.3) fL Gran % (34.0-71.1) % Immature Gran % (Auto) (0.001-0.429) % Nucleat RBC Rel Count (0.00-0.2) % Eos # (Auto) (0.04-0.36) x10^3/uL Immature Gran # (Auto) (0.001-0.031) x10^3u/L Absolute Lymphs (auto) (1.18-3.74) x10^3/uL Absolute Monos (auto) (0.24-0.86) x10^3/uL Absolute Nucleated RBC (0.00-0.012) x10^3u/L Lymphocytes % (19.3-51.7) % Monocytes % (4.7-12.5) % Eosinophils % (0.7-5.8) % Basophils % (0.1-1.2) % Absolute Granulocytes (1.56-6.13) x10^3/uL Basophils # (0.01-0.08) x10^3/uL PT 11.7 (9.4-12.5) SECONDS INR 1.08 (0.8-3.0) APTT 31.6 (25.1-36.5) SECONDS Sodium (135-145) mmol/L Potassium (3.5-5.1) mmol/L Chloride (98-107) mmol/L Carbon Dioxide (22-30) mmol/L Anion Gap (5-15) MEQ/L BUN (7-17) mg/dL Creatinine (0.52-1.04) mg/dL Estimated GFR ML/MIN Glucose (74-106) mg/dL Calcium (8.4-10.2) mg/dL Magnesium 2.0 (1.6-2.3) mg/dL Total Bilirubin (0.2-1.3) mg/dL AST (14-36) U/L ALT (0-35) U/L Alkaline Phosphatase (38-126) U/L Troponin I < 0.012 (0.000-0.033) ng/mL Serum Total Protein (6.3-8.2) g/dL Albumin (3.5-5.0) g/dL Prealbumin (17.6-36.0) mg/dL Amylase (30-110) U/L Lipase (23-300) U/L TSH 3rd Generation (0.470-4.680) mIU/L Urine Color (Yellow) Urine Appearance (Clear) Urine pH (4.6-8.0) Ur Specific [place] (1.005-1.030) Urine Protein (Negative) Urine Glucose (UA) (Negative) mg/dL Urine Ketones (Negative) Urine Blood (Negative) Urine Nitrite (Negative) Urine Bilirubin (Negative) Urine Urobilinogen (0.2) mg/dL Ur Leukocyte Esterase (Negative) U Hyaline Cast (Auto) (0-2) /LPF Urine Microscopic RBC (0-5) /HPF Urine Microscopic WBC (0-5) /HPF Ur Epithelial Cells (None Seen) /HPF Urine Bacteria (None Seen) /HPF Urine Culture Reflexed (NO) 12/11/23 12/11/23 12/11/23 Range/Units 02:50 06:43 06:43 WBC 6.6 (3.98-10.04) x10^3/uL RBC 3.23 L (3.93-5.22) x10^6/uL Hgb 10.5 L (11.2-15.7) g/dL Hct 32.5 L (34.1-44.9) % MCV 100.6 H (79.4-94.8) fL MCH 32.5 H (25.6-32.2) pg MCHC 32.3 (32.2-35.5) g/dL RDW 14.2 (11.7-14.4) % Plt Count 268 (182-369) x10^3/uL MPV 10.1 (9.4-12.3) fL Gran % (34.0-71.1) % Immature Gran % (Auto) (0.001-0.429) % Nucleat RBC Rel Count (0.00-0.2) % Eos # (Auto) (0.04-0.36) x10^3/uL Immature Gran # (Auto) (0.001-0.031) x10^3u/L Absolute Lymphs (auto) (1.18-3.74) x10^3/uL Absolute Monos (auto) (0.24-0.86) x10^3/uL Absolute Nucleated RBC (0.00-0.012) x10^3u/L Lymphocytes % (19.3-51.7) % Monocytes % (4.7-12.5) % Eosinophils % (0.7-5.8) % Basophils % (0.1-1.2) % Absolute Granulocytes (1.56-6.13) x10^3/uL Basophils # (0.01-0.08) x10^3/uL PT (9.4-12.5) SECONDS INR (0.8-3.0) APTT (25.1-36.5) SECONDS Sodium 138 (135-145) mmol/L Potassium 3.7 (3.5-5.1) mmol/L Chloride 104 (98-107) mmol/L Carbon Dioxide 25 (22-30) mmol/L Anion Gap 13.8 (5-15) MEQ/L BUN 20 H (7-17) mg/dL Creatinine 1.09 H (0.52-1.04) mg/dL Estimated GFR 48.6 ML/MIN Glucose 106 (74-106) mg/dL Calcium 8.9 (8.4-10.2) mg/dL Magnesium 1.9 (1.6-2.3) mg/dL Total Bilirubin (0.2-1.3) mg/dL AST (14-36) U/L ALT (0-35) U/L Alkaline Phosphatase (38-126) U/L Troponin I < 0.012 (0.000-0.033) ng/mL Serum Total Protein (6.3-8.2) g/dL Albumin (3.5-5.0) g/dL Prealbumin 20.84 (17.6-36.0) mg/dL Amylase (30-110) U/L Lipase (23-300) U/L TSH 3rd Generation 3.324 (0.470-4.680) mIU/L Urine Color (Yellow) Urine Appearance (Clear) Urine pH (4.6-8.0) Ur Specific [place] (1.005-1.030) Urine Protein (Negative) Urine Glucose (UA) (Negative) mg/dL Urine Ketones (Negative) Urine Blood (Negative) Urine Nitrite (Negative) Urine Bilirubin (Negative) Urine Urobilinogen (0.2) mg/dL Ur Leukocyte Esterase (Negative) U Hyaline Cast (Auto) (0-2) /LPF Urine Microscopic RBC (0-5) /HPF Urine Microscopic WBC (0-5) /HPF Ur Epithelial Cells (None Seen) /HPF Urine Bacteria (None Seen) /HPF Urine Culture Reflexed (NO) 12/11/23 Range/Units 06:43 WBC (3.98-10.04) x10^3/uL RBC (3.93-5.22) x10^6/uL Hgb (11.2-15.7) g/dL Hct (34.1-44.9) % MCV (79.4-94.8) fL MCH (25.6-32.2) pg MCHC (32.2-35.5) g/dL RDW (11.7-14.4) % Plt Count (182-369) x10^3/uL MPV (9.4-12.3) fL Gran % (34.0-71.1) % Immature Gran % (Auto) (0.001-0.429) % Nucleat RBC Rel Count (0.00-0.2) % Eos # (Auto) (0.04-0.36) x10^3/uL Immature Gran # (Auto) (0.001-0.031) x10^3u/L Absolute Lymphs (auto) (1.18-3.74) x10^3/uL Absolute Monos (auto) (0.24-0.86) x10^3/uL Absolute Nucleated RBC (0.00-0.012) x10^3u/L Lymphocytes % (19.3-51.7) % Monocytes % (4.7-12.5) % Eosinophils % (0.7-5.8) % Basophils % (0.1-1.2) % Absolute Granulocytes (1.56-6.13) x10^3/uL Basophils # (0.01-0.08) x10^3/uL PT (9.4-12.5) SECONDS INR (0.8-3.0) APTT (25.1-36.5) SECONDS Sodium (135-145) mmol/L Potassium (3.5-5.1) mmol/L Chloride (98-107) mmol/L Carbon Dioxide (22-30) mmol/L Anion Gap (5-15) MEQ/L BUN (7-17) mg/dL Creatinine (0.52-1.04) mg/dL Estimated GFR ML/MIN Glucose (74-106) mg/dL Calcium (8.4-10.2) mg/dL Magnesium (1.6-2.3) mg/dL Total Bilirubin 1.90 H (0.2-1.3) mg/dL AST (14-36) U/L ALT (0-35) U/L Alkaline Phosphatase (38-126) U/L Troponin I (0.000-0.033) ng/mL Serum Total Protein (6.3-8.2) g/dL Albumin (3.5-5.0) g/dL Prealbumin (17.6-36.0) mg/dL Amylase (30-110) U/L Lipase (23-300) U/L TSH 3rd Generation (0.470-4.680) mIU/L Urine Color (Yellow) Urine Appearance (Clear) Urine pH (4.6-8.0) Ur Specific [place] (1.005-1.030) Urine Protein (Negative) Urine Glucose (UA) (Negative) mg/dL Urine Ketones (Negative) Urine Blood (Negative) Urine Nitrite (Negative) Urine Bilirubin (Negative) Urine Urobilinogen (0.2) mg/dL Ur Leukocyte Esterase (Negative) U Hyaline Cast (Auto) (0-2) /LPF Urine Microscopic RBC (0-5) /HPF Urine Microscopic WBC (0-5) /HPF Ur Epithelial Cells (None Seen) /HPF Urine Bacteria (None Seen) /HPF Urine Culture Reflexed (NO) - Radiology Impressions Radiology Exams & Impressions: Radiology Procedures Category Date Time Status CHEST 2 VIEWS (PA AND LAT) Stat Exams 12/10/23 21:19 Completed FEMUR Stat Exams 12/10/23 21:21 Completed HAND (MINIMUM 3 VIEWS) Stat Exams 12/10/23 21:21 Completed KNEE (3 VIEWS) Stat Exams 12/10/23 21:21 Completed LOWER LEG Stat Exams 12/10/23 21:22 Completed PELVIS (1 OR 2 VIEWS) Stat Exams 12/10/23 21:22 Completed - Other Procedures and Tests Respiratory Therapy 12/11/23 06:55 Oxygen Nasal Cannula 2 lpm Assessment/Plan (1) Chronic atrial fibrillation with rapid ventricular response Current Visit: Yes Status: Acute Assessment & Plan: - Cardizem gtt and metoprolol IV gave in ER - Rate controlled and cardizem gtt weaned off this AM - Continue metoprolol PO - cardiology consulted- note reviewed and agree with plan of care CHADS-VASC = 5. - Recommend starting apixaban 2.5 mg BID if no concern for falls - Start metoprolol tartrate 25 mg PO BID - Decrease diltiazem gtt and shut off if HR< 100 - Obtain echocardiogram - HR likely to improve with diuresis as below - Echo pending Code(s): I48.20 - CHRONIC ATRIAL FIBRILLATION, UNSPECIFIED (2) CHF (congestive heart failure) Current Visit: Yes Status: Acute Assessment & Plan: - acute on chronic - Echo - continue IV Lasix 20 mg bid - Likely diastolic dysfunction - Tele - Trop x2 negative- trend Code(s): I50.9 - HEART FAILURE, UNSPECIFIED (3) Bronchitis Current Visit: Yes Status: Acute Assessment & Plan: - Xoponex breathing treatments - no need for antibiotics at this time. - 2lnc 97%- BL RA Code(s): J40 - BRONCHITIS, NOT SPECIFIED ACUTE OR CHRONIC (4) Fall Current Visit: Yes Status: Acute Assessment & Plan: - PT eval and treat - consider rehab vs. NH placement Code(s): W19.XXXA - UNSPECIFIED FALL, INITIAL ENCOUNTER (5) GERD (gastroesophageal reflux disease) Current Visit: Yes Status: Chronic Assessment & Plan: - Continue Pepcid Code(s): K21.9 - GASTRO-ESOPHAGEAL REFLUX DISEASE WITHOUT ESOPHAGITIS (6) Depression Current Visit: Yes Status: Chronic Assessment & Plan: - Continue Zoloft Code(s): F32.A - DEPRESSION, UNSPECIFIED (7) Hyperlipidemia Current Visit: Yes Status: Chronic Assessment & Plan: - continue statin VTE: Eliquis PPI: Pepcid Next of KIN: [facility] Lei [phone] D/C plan: 1-2 days Code status: Full Code(s): E78.5 - HYPERLIPIDEMIA, UNSPECIFIED
[2023-12-11] MEDS ORDERED: Xopenex 1.25 MG/0.5 ML UD NEBULE IH ONE (14:19)
[2023-12-11] MEDS: Xopenex 1.25 MG/0.5 ML UD NEBULE IH SCH (14:24)
[2023-12-11] MEDS: Sodium Chloride 3 ML UD NEBULES IH SCH (14:24)
[2023-12-11] MEDS: Compazine 10 MG/2 ML IV PRN (17:40)
[2023-12-11] MEDS ORDERED: Xopenex 1.25 MG/0.5 ML UD NEBULE IH SCH (19:00)
[2023-12-11] MEDS: Zocor 10MG PO SCH (19:39)
[2023-12-11] MEDS ORDERED: NON-FORMULARY ITEM (Rosuvastatin Calcium [Rosuvastatin Calcium] 5 MG Tablet) PO SCH (22:00)
[2023-12-12 04:53] LABS: Hematocrit 31.6 % (34.1-44.9); Hemoglobin 10.2 g/dL (11.2-15.7); Mean Cell Volume 100.6 fL (79.4-94.8); Mean Corpuscular Hemoglobin 32.5 pg (25.6-32.2); Mean Corpuscular Hgb Concent. 32.3 g/dL (32.2-35.5); Mean Platelet Volume 10.5 fL (9.4-12.3); Platelet Count 224 x10^3/uL (182-369); Red Blood Count 3.14 x10^6/uL (3.93-5.22); Red Cell Distribution Width 14.3 % (11.7-14.4); White Blood Count 6.4 x10^3/uL (3.98-10.04)
[2023-12-12 05:13] LABS: ALBUMIN 3.7 g/dL (3.5-5.0); ANION GAP 11.2 MEQ/L (5-15); BILIRUBIN,TOTAL 2.9 mg/dL (0.2-1.3); Calcium 9.2 mg/dL (8.4-10.2); Creatinine 1 0.93 mg/dL (0.52-1.04); EST GLOMERULAR FILTRATION RATE 58.8 ML/MIN; Potassium 3.3 mmol/L (3.5-5.1); Total Protein 6.4 g/dL (6.3-8.2)
[2023-12-12] MEDS ORDERED: Xopenex 1.25 MG/0.5 ML UD NEBULE IH PRN (06:44)
[2023-12-12] MEDS: POTASSIUM CHLORIDE 20 mEq IN WATER 100ML 100 ML IV SCH (09:19)
[2023-12-12] MEDS: Sodium Chloride 0.9% 500 ML 500 ML IV SCH (09:19)
[2023-12-12] MEDS: TYLENOL 325 MG PO PRN (11:30)
[2023-12-12] MEDS: Compazine 10 MG/2 ML IV PRN (13:47)
--- NOTE | 2023-12-12 15:08 | PCM.NOTE ---
Date and Time: 12/12/23 1456 Subjective Assessment: 12/11/23 is a 88 year old female with PMHX of dementia, arrythmia, cataracts, CHF, hyperlipidemia, HTN, GERD, A-fib, and lumpectomy. She lives at [facility]. Pt states she fell in her bedroom and does not know why she fell; occurred on 12/10/23. In ER she was found to be in A-fib RVR and gave cardizem IV and metoprolol, then started on a cardizem gtt. She was given 1 L fluid bolus and then IVF started. Rocephin was started for bronchitis. She had multiple XR's in ER no acute concerns seen. CXR did show bronchitis, lung sounds are clear, but she is having some SOB. She is on 2LNC at 97%. Baseline is room air. Will continue breathing treatments. Currently HR has improved to 70s, on cardizem gtt this AM. Gtt weaned off around 11:00 am. She continues to have A- fib which is chronic for her but no longer RVR. Will continue with IV lasix. She denies CP, Abd. pain, N/V/D. 12/12/23 Pt resting in bed. She continues to be confused and only alert to self. She was approved to go to [facility] today for rehab as she is not stable enough to go back to assisted living. Bili up and US ordered for further evaluation. Pt having some nausea this afternoon. Echo EF 42.84%. Cardiology recs reviewed. A-fib controlled. K+ 3.3 and replaced. She denies any further concerns at this time. Plan is to d/c tomorrow. - Review of Systems Constitutional: No Fever, No Chills Eyes: No Symptoms Ears, Nose, & Throat: No Symptoms Respiratory: No Cough, No Short Of Breath Cardiac: No Chest Pain, No Edema, No Syncope Abdominal/Gastrointestinal: Nausea, No Abdominal Pain, No Vomiting, No Diarrhea Genitourinary Symptoms: No Dysuria Musculoskeletal: No Back Pain, No Neck Pain Skin: No Rash Neurological: No Dizziness, No Focal Weakness, No Sensory Changes Psychological: No Symptoms Endocrine: No Symptoms Hematologic/Lymphatic: No Symptoms Immunological/Allergic: No Symptoms Objective Exam General Appearance: no apparent distress, alert Neurologic Exam: alert, oriented x 3, cooperative, normal mood/affect, nml cerebellar function, sensation nml, No motor deficits Skin Exam: normal color, warm, dry Eye Exam: PERRL, EOMI, eyes nml inspection Ears, Nose, Throat Exam: normal ENT inspection, pharynx normal, moist mucous membranes Neck Exam: normal inspection, non-tender, supple, full range of motion Respiratory Exam: normal breath sounds, lungs clear, No respiratory distress Cardiovascular Exam: regular rate/rhythm, normal heart sounds Gastrointestinal/Abdomen Exam: soft, No tenderness, No mass Extremity Exam: normal inspection, normal range of motion Back Exam: normal inspection, normal range of motion, No CVA tenderness, No vertebral tenderness Pelvic Exam: deferred Rectal Exam: deferred Objective Data Vital Signs: Vital Signs - 24 hr Temp Pulse Resp BP Pulse Ox 12/12/23 10:55 80 127/85 12/12/23 08:00 78 12/12/23 07:38 94 H 130/68 12/12/23 06:41 81 20 94 L 12/12/23 06:00 93 L 12/12/23 05:00 86 12/12/23 04:00 98.0 F 87 22 126/71 93 L 12/12/23 00:30 86 22 12/12/23 00:01 93 H 12/12/23 00:00 105 H 28 H 93 L 12/11/23 19:49 122 H 12/11/23 19:35 97.6 F 122 H 27 H 149/87 89 L 12/11/23 19:30 130 H 22 12/11/23 19:20 103 H 25 H 12/11/23 19:10 136 H 14 12/11/23 19:00 90 24 12/11/23 18:50 83 23 12/11/23 18:40 83 24 12/11/23 18:30 93 H 24 12/11/23 18:20 97 H 26 H 12/11/23 18:02 122 H 38 H 12/11/23 17:44 118 H 33 H 113/78 94 L 12/11/23 16:01 95 H 25 H 135/79 96 12/11/23 16:00 98 H 12/11/23 15:00 98 H 27 H 131/74 94 L Pain Assessment - Last Documented Pain Intensity 0 Intake and Output: Intake & Output 0712/11/23 12/12/23 12/13/23 11:59 11:59 11:59 11:59 Intake Total 400 Output Total 575 1350 Balance -575 -950 Weight 69.9 kg 68.2 kg Lab Results: Lab Results-Last 24 Hours 12/11/23 12/12/23 12/12/23 Range/Units 06:43 04:16 04:16 WBC 6.4 (3.98-10.04) x10^3/uL RBC 3.14 L (3.93-5.22) x10^6/uL Hgb 10.2 L (11.2-15.7) g/dL Hct 31.6 L (34.1-44.9) % MCV 100.6 H (79.4-94.8) fL MCH 32.5 H (25.6-32.2) pg MCHC 32.3 (32.2-35.5) g/dL RDW 14.3 (11.7-14.4) % Plt Count 224 (182-369) x10^3/uL MPV 10.5 (9.4-12.3) fL Sodium 135 (135-145) mmol/L Potassium 3.3 L (3.5-5.1) mmol/L Chloride 101 (98-107) mmol/L Carbon Dioxide 27 (22-30) mmol/L Anion Gap 11.2 (5-15) MEQ/L BUN 15 (7-17) mg/dL Creatinine 0.93 (0.52-1.04) mg/dL Estimated GFR 58.8 ML/MIN Glucose 99 (74-106) mg/dL Calcium 9.2 (8.4-10.2) mg/dL Total Bilirubin 2.90 H (0.2-1.3) mg/dL AST 32 (14-36) U/L ALT 20 (0-35) U/L Alkaline Phosphatase 70 (38-126) U/L Serum Total Protein 6.4 (6.3-8.2) g/dL Albumin 3.7 (3.5-5.0) g/dL Thyroxine (T4) 6.5 (4.5-12.0) ug/dL Radiology Exams: Radiology Procedures Category Date Time Status CHEST 2 VIEWS (PA AND LAT) Stat Exams 12/10/23 21:19 Completed ECHO W/2D AND DOPPLER [US] Routine Exams 12/11/23 13:23 Taken FEMUR Stat Exams 12/10/23 21:21 Completed HAND (MINIMUM 3 VIEWS) Stat Exams 12/10/23 21:21 Completed KNEE (3 VIEWS) Stat Exams 12/10/23 21:21 Completed LOWER LEG Stat Exams 12/10/23 21:22 Completed PELVIS (1 OR 2 VIEWS) Stat Exams 12/10/23 21:22 Completed US ABDOMEN LIMITED [ABDOMINAL-LIMITED] [US] Routine Exams 12/12/23 11:40 Ordered Multi-Disciplinary Progress Notes: Multi-Disciplinary Progress Notes 12/12/23 14:10 Physical Therapy Note by Charles(L#[id number])Krystle PT. WAS SEEN BY P.T. THIS DATE. IN A.M. PERFORMED SEATED LE EX'S OF ANKLE PUMPS, HEEL SLIDES, AND QUAD SETS. REFUSED TO WALK IN A.M. PT. STILL CONFUSED; ALERT AND ORIENTED CONSISTENTLY TO SELF ONLY. C/O L HAND PN D/T IV. RN GAVE DOSE OF TYLENOL. YESTERDAY, OMER AT [facility] REPORTED THAT PLOF - WAS TRANSFERRED INDEPENDENTLY; AMBULATED SHORT DISTANCES W/ ROLLATOR W/ VERY SLOW PACE MOD I. IN P.M. PT. PERFORMED SIT TO STAND FROM BEDSIDE RECLINER W/ MOD ASSIST X 1 AND ROLLATOR IN FRONT OF HER. AMBULATED ~ 10' NOTED SHUFFLING GAIT PATTERN W/ DECREASED STRIDE LENGTH BILATERALLY. REQUIRED MOD ASSIST X 1 TO MAINTAIN BALANCE. WHEN CUED TO TAKE A LARGER STEP, PT. REPORTED SHE IS NOT ABLE TO. MOD ASSIST X 2 TO PERFORM SIT TO SUPINE. DIFFICULTY W/ SCOOTING NOTED WELL. PLAN IS TO D/C TO SNF TO CONT. REHAB WHEN STABLE. Initialized on 12/12/23 14:10 - END OF NOTE 12/12/23 12:23 Case Management Note by Yancy Ventura S/W WITH JACOB FROM [facility]. PATIENT AUTH APPROVED FOR FOR ADMISSION FROM TODAY THROUGH 12/15/23 AT [facility]/ Initialized on 12/12/23 12:23 - END OF NOTE 12/11/23 18:41 Respiratory Note by Short,Dee Patient has Q6 Nebs due but held at this time per RN. Patient is asleep and has had a hard time getting to rest. RN will notify RT when patient is awake. No respiratory difficulty at this time. Initialized on 12/11/23 18:41 - END OF NOTE Assessment/Plan (1) Chronic atrial fibrillation with rapid ventricular response Current Visit: Yes Status: Acute Code(s): I48.20 - CHRONIC ATRIAL FIBRILLATION, UNSPECIFIED (2) CHF (congestive heart failure) Current Visit: Yes Status: Acute Code(s): I50.9 - HEART FAILURE, UNSPECIFIED (3) Bronchitis Current Visit: Yes Status: Acute Code(s): J40 - BRONCHITIS, NOT SPECIFIED ACUTE OR CHRONIC (4) Fall Current Visit: Yes Status: Acute Code(s): W19.XXXA - UNSPECIFIED FALL, INITIAL ENCOUNTER (5) GERD (gastroesophageal reflux disease) Current Visit: Yes Status: Chronic Code(s): K21.9 - GASTRO-ESOPHAGEAL REFLUX DISEASE WITHOUT ESOPHAGITIS (6) Depression Current Visit: Yes Status: Chronic Code(s): F32.A - DEPRESSION, UNSPECIFIED (7) Hyperlipidemia Current Visit: Yes Status: Chronic Assessment & Plan: (1) Chronic atrial fibrillation with rapid ventricular response Current Visit: Yes Status: Acute Assessment & Plan: - Cardizem gtt and metoprolol IV gave in ER - Rate controlled and cardizem gtt weaned off this AM - Continue metoprolol PO - cardiology consulted- note reviewed and agree with plan of care CHADS-VASC = 5. - Recommend starting apixaban 2.5 mg BID if no concern for falls - Start metoprolol tartrate 25 mg PO BID - Decrease diltiazem gtt and shut off if HR< 100 - Obtain echocardiogram - HR likely to improve with diuresis as below 7/30 - Echo reviewed- EF 42.84% - Continued controlled a-fib Code(s): I48.20 - CHRONIC ATRIAL FIBRILLATION, UNSPECIFIED (2) CHF (congestive heart failure) Current Visit: Yes Status: Acute Assessment & Plan: - acute on chronic - Echo - continue IV Lasix 20 mg bid - Likely diastolic dysfunction - Tele - Trop x3 negative Code(s): I50.9 - HEART FAILURE, UNSPECIFIED (3) Bronchitis Current Visit: Yes Status: Acute Assessment & Plan: - Xoponex breathing treatments - no need for antibiotics at this time. - 2lnc 97%- BL RA Code(s): J40 - BRONCHITIS, NOT SPECIFIED ACUTE OR CHRONIC (4) Fall Current Visit: Yes Status: Acute Assessment & Plan: - PT eval and treat - consider rehab vs. NH placement 12/11 - accepted to [facility] for rehab Code(s): W19.XXXA - UNSPECIFIED FALL, INITIAL ENCOUNTER (5) GERD (gastroesophageal reflux disease) Current Visit: Yes Status: Chronic Assessment & Plan: - Continue Pepcid - Compazine PRN nausea Code(s): K21.9 - GASTRO-ESOPHAGEAL REFLUX DISEASE WITHOUT ESOPHAGITIS (6) Depression Current Visit: Yes Status: Chronic Assessment & Plan: - Continue Zoloft Code(s): F32.A - DEPRESSION, UNSPECIFIED (7) Hyperlipidemia Current Visit: Yes Status: Chronic Assessment & Plan: - continue statin Code(s): E78.5 - HYPERLIPIDEMIA, UNSPECIFIED Code(s): E78.5 - HYPERLIPIDEMIA, UNSPECIFIED (8) Hypokalemia Current Visit: Yes Status: Acute Assessment & Plan: - K+ 3.3 replaced Code(s): E87.6 - HYPOKALEMIA (9) Elevated bilirubin Current Visit: Yes Status: Acute Assessment & Plan: - US abd - denies abd. pain VTE: Eliquis PPI: Pepcid Next of KIN: Carrington Lei [phone] D/C plan: tomorrow Code status: Full Code(s): R17 - UNSPECIFIED JAUNDICE
--- NOTE | 2023-12-12 18:56 | XRAY ---
Indication: Elevated bilirubin. Two-dimensional right upper quadrant abdominal sonogram performed. Comparison: None Visualized liver and pancreas appears homogeneous in echogenicity. No organomegaly or free fluid. Visualized gallbladder normally distended with minimal sludge in dependent portion. No gallstones, abnormal wall thickening, or pericholecystic fluid. Common bile duct measures 2.9 mm. No intrahepatic biliary distention. Right kidney measures 9.2 x 3.2 x 3.5 cm and sonographically normal. Impression: Tiny gallbladder sludge. Remaining right upper quadrant sonogram is negative.
[2023-12-13 04:51] LABS: Hematocrit 33.3 % (34.1-44.9); Hemoglobin 10.8 g/dL (11.2-15.7); Mean Cell Volume 99.1 fL (79.4-94.8); Mean Corpuscular Hemoglobin 32.1 pg (25.6-32.2); Mean Corpuscular Hgb Concent. 32.4 g/dL (32.2-35.5); Mean Platelet Volume 10.6 fL (9.4-12.3); Platelet Count 288 x10^3/uL (182-369); Red Blood Count 3.36 x10^6/uL (3.93-5.22); Red Cell Distribution Width 14.2 % (11.7-14.4); White Blood Count 7.9 x10^3/uL (3.98-10.04)
[2023-12-13 05:05] LABS: ALBUMIN 4.1 g/dL (3.5-5.0); ANION GAP 14.8 MEQ/L (5-15); BILIRUBIN,TOTAL 3.1 mg/dL (0.2-1.3); Calcium 9.3 mg/dL (8.4-10.2); Creatinine 1 1.06 mg/dL (0.52-1.04); EST GLOMERULAR FILTRATION RATE 50.2 ML/MIN; Potassium 3.6 mmol/L (3.5-5.1); Total Protein 7.2 g/dL (6.3-8.2)
--- NOTE | 2023-12-13 10:04 | PCM.DS ---
Discharge Summary Date of Admission: 12/11/23 04:47 Date of Discharge: 12/13/23 Admitting Physician: JUSTEN RUSHING MD Consults: Consults on Case 12/11/23 04:54 Consult Cardiology ROUTINE Primary Care Provider: STEPHEN BELLA DO Allergies Allergies No Known Drug Allergies Allergy (Unverified 05/05/23 10:28) Hospital Summary - Hospital Course Hospital Course: 12/11/23 is a 88 year old female with PMHX of dementia, arrythmia, cataracts, CHF, hyperlipidemia, HTN, GERD, A-fib, and lumpectomy. She lives at [facility]. Pt states she fell in her bedroom and does not know why she fell; occurred on 12/10/23. In ER she was found to be in A-fib RVR and gave cardizem IV and metoprolol, then started on a cardizem gtt. She was given 1 L fluid bolus and then IVF started. Rocephin was started for bronchitis. She had multiple XR's in ER no acute concerns seen. CXR did show bronchitis, lung sounds are clear, but she is having some SOB. She is on 2LNC at 97%. Baseline is room air. Will continue breathing treatments. Currently HR has improved to 70s, on cardizem gtt this AM. Gtt weaned off around 11:00 am. She continues to have A- fib which is chronic for her but no longer RVR. Will continue with IV lasix. She denies CP, Abd. pain, N/V/D. 12/12/23 Pt resting in bed. She continues to be confused and only alert to self. She was approved to go to [facility] today for rehab as she is not stable enough to go back to assisted living. Bili up and US ordered for further evaluation. Pt having some nausea this afternoon. Echo EF 42.84%. Cardiology recs reviewed. A-fib cont rolled. K+ 3.3 and replaced. She denies any further concerns at this time. Plan is to d/c tomorrow. 12/13/23 Pt resting in chair. She has been accepted to [facility] and is scheduled for d/c today. US of abd. showed tiny gallbladder sludge. She denies any abd. pain. She has had nausea every evening and will d/c with nausea meds. She continues to be in A-fib, controlled. Hypokalemia resolved. She denies CP, SOB, abd. pain, N/V/D. She continues to be confused and at baseline oriented to self. She denies any further concerns and is ready to d/c today. - Vitals & Intake/Output Vital Signs: Vital Signs Temperature 96.3 F 12/13/23 07:38 Pulse Rate 111 H 12/13/23 07:38 Respiratory Rate 12/13/23 07:38 Blood Pressure 94/67 12/13/23 07:38 O2 Sat by Pulse Oximetry 91 L 12/13/23 07:38 Intake & Output: Intake & Output 12/10/23 12/11/23 12/12/23 12/13/23 11:59 11:59 11:59 11:59 Intake Total 400 400 Output Total 575 1350 Balance -575 -950 400 Weight 69.9 kg 68.2 kg 66.9 kg - Lab Result Diagrams: 12/13/23 04:40 12/13/23 04:40 Lab Results-Last 24 Hrs: Lab Results-Last 24 Hours 12/11/23 12/12/23 12/13/23 Range/Units 06:43 19:35 04:40 WBC 7.9 (3.98-10.04) x10^3/uL RBC 3.36 L (3.93-5.22) x10^6/uL Hgb 10.8 L (11.2-15.7) g/dL Hct 33.3 L (34.1-44.9) % MCV 99.1 H (79.4-94.8) fL MCH 32.1 (25.6-32.2) pg MCHC 32.4 (32.2-35.5) g/dL RDW 14.2 (11.7-14.4) % Plt Count 288 (182-369) x10^3/uL MPV 10.6 (9.4-12.3) fL Sodium (135-145) mmol/L Potassium 4.3 D (3.5-5.1) mmol/L Chloride (98-107) mmol/L Carbon Dioxide (22-30) mmol/L Anion Gap (5-15) MEQ/L BUN (7-17) mg/dL Creatinine (0.52-1.04) mg/dL Estimated GFR ML/MIN Glucose (74-106) mg/dL Calcium (8.4-10.2) mg/dL Magnesium (1.6-2.3) mg/dL Total Bilirubin (0.2-1.3) mg/dL AST (14-36) U/L ALT (0-35) U/L Alkaline Phosphatase (38-126) U/L Serum Total Protein (6.3-8.2) g/dL Albumin (3.5-5.0) g/dL Thyroxine (T4) 6.5 (4.5-12.0) ug/dL 12/13/23 Range/Units 04:40 WBC (3.98-10.04) x10^3/uL RBC (3.93-5.22) x10^6/uL Hgb (11.2-15.7) g/dL Hct (34.1-44.9) % MCV (79.4-94.8) fL MCH (25.6-32.2) pg MCHC (32.2-35.5) g/dL RDW (11.7-14.4) % Plt Count (182-369) x10^3/uL MPV (9.4-12.3) fL Sodium 136 (135-145) mmol/L Potassium 3.6 (3.5-5.1) mmol/L Chloride 101 (98-107) mmol/L Carbon Dioxide 24 (22-30) mmol/L Anion Gap 14.8 (5-15) MEQ/L BUN 17 (7-17) mg/dL Creatinine 1.06 H (0.52-1.04) mg/dL Estimated GFR 50.2 ML/MIN Glucose 106 (74-106) mg/dL Calcium 9.3 (8.4-10.2) mg/dL Magnesium 2.0 (1.6-2.3) mg/dL Total Bilirubin 3.10 H (0.2-1.3) mg/dL AST 37 H (14-36) U/L ALT 21 (0-35) U/L Alkaline Phosphatase 73 (38-126) U/L Serum Total Protein 7.2 (6.3-8.2) g/dL Albumin 4.1 (3.5-5.0) g/dL Thyroxine (T4) (4.5-12.0) ug/dL Micro Results-Entire Visit: Microbiology 12/10/23 21:47 Urine Culture - Final Urine, Catheterized NO GROWTH - Radiology Exams Ordered Rad Exams-Entire Visit: Radiology Procedures Category Date Time Status ECHO W/2D AND DOPPLER [US] Routine Exams 12/11/23 13:23 Taken US ABDOMEN LIMITED [ABDOMINAL-LIMITED] [US] Routine Exams 12/12/23 11:40 Completed - Procedures and Test Procedures and Tests throughout Hospitalization: Therapy Orders & Screens 12/11/23 04:54 EKG REPEAT IN AM Comment: Oxygen Nasal Cannula 2 lpm Comment: 12/11/23 06:38 PT Screen per Nursing Assess ONCE Comment: Protocol Order Physician Instructions: Greater than 3 points order PT Admission Screenin Reason For Exam: Triggered on Admission Diagnosis: A. Fib with RVR Open Wound/Cellutlitis/Pressure Ulcers: No Acute Fx/ORIF/Change in wt bearing status: No Severe MUSCULOSKELETAL pain: No ADL Dysfunction: Yes Acute CVA w/Hemiparesis/Hemiplegia: No Decreased Functional Mobility/Strength: Yes Sprain/Strain: No Acute Post-op Mobility Dysfunction: No Total Points: 4 ST Screen per Nursing Assess ONCE Comment: Protocol Order Physician Instructions: Greater than [address] Admission Screening Reason For Exam: Triggered on Admission Diagnosis: A. Fib with RVR CVA/Dyshpagia/Aphasia: No Cognitive Deficits: No Dehydration/Nutrition Deficit: No Reflux: No Oral-Motor Difficulties: No Pneumonia: No Assisted Resident: Yes Total Points: 5 12/11/23 06:55 Oxygen Nasal Cannula 2 lpm Comment: Diagnosis: A. Fib with RVR 12/11/23 10:13 PT Eval & Treat (MD Order) ONCE Reason for Eval:: frequent falls and weakness Diagnosis: A. Fib with RVR 12/11/23 13:57 Respiratory Therapy Assessment DAILY Comment: Diagnosis: A. Fib with RVR Discharge Exam General Appearance: no apparent distress, alert Neurologic Exam: alert, cooperative, normal mood/affect, sensation nml, other (alert to self), No motor deficits Eye Exam: PERRL, EOMI, eyes nml inspection Ears, Nose, Throat Exam: normal ENT inspection, pharynx normal, moist mucous membranes Neck Exam: normal inspection, non-tender, supple, full range of motion Respiratory Exam: normal breath sounds, lungs clear, No respiratory distress Cardiovascular Exam: normal heart sounds, irregular Gastrointestinal/Abdomen Exam: soft, No tenderness, No mass Pelvic Exam: deferred Rectal Exam: deferred Back Exam: normal inspection, normal range of motion, No CVA tenderness, No vertebral tenderness Extremity Exam: normal inspection, normal range of motion Skin Exam: normal color, warm, dry Final Diagnosis/Problem List - Final Discharge Diagnosis/Problem (1) Chronic atrial fibrillation with rapid ventricular response Current Visit: Yes Status: Acute Code(s): I48.20 - CHRONIC ATRIAL FIBRILLATION, UNSPECIFIED (2) CHF (congestive heart failure) Current Visit: Yes Status: Acute Code(s): I50.9 - HEART FAILURE, UNSPECIFIED (3) Bronchitis Current Visit: Yes Status: Acute Code(s): J40 - BRONCHITIS, NOT SPECIFIED ACUTE OR CHRONIC (4) Fall Current Visit: Yes Status: Acute Code(s): W19.XXXA - UNSPECIFIED FALL, INITIAL ENCOUNTER (5) GERD (gastroesophageal reflux disease) Current Visit: Yes Status: Chronic Code(s): K21.9 - GASTRO-ESOPHAGEAL REFLUX DISEASE WITHOUT ESOPHAGITIS (6) Depression Current Visit: Yes Status: Chronic Code(s): F32.A - DEPRESSION, UNSPECIFIED (7) Hyperlipidemia Current Visit: Yes Status: Chronic Code(s): E78.5 - HYPERLIPIDEMIA, UNSPECIFIED (8) Hypokalemia Current Visit: Yes Status: Acute Code(s): E87.6 - HYPOKALEMIA (9) Elevated bilirubin Current Visit: Yes Status: Acute Assessment & Plan: (1) Chronic atrial fibrillation with rapid ventricular response Current Visit: Yes Status: Acute Assessment & Plan: - Cardizem gtt and metoprolol IV gave in ER - Rate controlled and cardizem gtt weaned off this AM - Continue metoprolol PO - cardiology consulted- note reviewed and agree with plan of care CHADS-VASC = 5. - Recommend starting apixaban 2.5 mg BID if no concern for falls - Start metoprolol tartrate 25 mg PO BID - Decrease diltiazem gtt and shut off if HR< 100 - Obtain echocardiogram - HR likely to improve with diuresis as below 7/30 - Echo reviewed- EF 42.84% - Continued controlled a-fib Code(s): I48.20 - CHRONIC ATRIAL FIBRILLATION, UNSPECIFIED (2) CHF (congestive heart failure) Current Visit: Yes Status: Acute Assessment & Plan: - acute on chronic - Echo - continue IV Lasix 20 mg bid - Likely diastolic dysfunction - Tele - Trop x3 negative Code(s): I50.9 - HEART FAILURE, UNSPECIFIED (3) Bronchitis Current Visit: Yes Status: Acute Assessment & Plan: - Xoponex breathing treatments - no need for antibiotics at this time. - 2lnc 97%- BL RA Code(s): J40 - BRONCHITIS, NOT SPECIFIED ACUTE OR CHRONIC (4) Fall Current Visit: Yes Status: Acute Assessment & Plan: - PT eval and treat - consider rehab vs. NH placement 12/11 - accepted to [facility] for rehab Code(s): W19.XXXA - UNSPECIFIED FALL, INITIAL ENCOUNTER (5) GERD (gastroesophageal reflux disease) Current Visit: Yes Status: Chronic Assessment & Plan: - Continue Pepcid - Compazine PRN nausea Code(s): K21.9 - GASTRO-ESOPHAGEAL REFLUX DISEASE WITHOUT ESOPHAGITIS (6) Depression Current Visit: Yes Status: Chronic Assessment & Plan: - Continue Zoloft Code(s): F32.A - DEPRESSION, UNSPECIFIED (7) Hyperlipidemia Current Visit: Yes Status: Chronic Assessment & Plan: - continue statin Code(s): E78.5 - HYPERLIPIDEMIA, UNSPECIFIED Code(s): E78.5 - HYPERLIPIDEMIA, UNSPECIFIED (8) Hypokalemia Current Visit: Yes Status: Acute Assessment & Plan: - K+ 3.3 replaced 12/11 - resolved Code(s): E87.6 - HYPOKALEMIA (9) Elevated bilirubin Current Visit: Yes Status: Acute Assessment & Plan: - US abd Impression: Tiny gallbladder sludge. Remaining right upper quadrant sonogram is negative - denies abd. pain - PRN nausea meds Code(s): R17 - UNSPECIFIED JAUNDICE - Discharge Discharge Date: 12/13/23 Disposition: Home, Self-Care Condition: Stable Prescriptions: New Metoprolol Tartrate 25 mg [Lopressor 25MG Tab] 25 mg PO BID 30 Days #60 tablet Continue Rosuvastatin Calcium 5 mg PO HS Sertraline HCl [Zoloft] 1 tab PO DAILY Magnesium Oxide [Mag-Oxide] 400 mg PO UD Folic Acid 1 tab PO DAILY Clopidogrel Bisulfate [Plavix] 0.5 tab PO DAILY Apixaban [Eliquis 2.5 mg Tablet] 2.5 mg PO BID Famotidine [Pepcid] 20 mg PO BID Potassium Chloride [Klor-Con 10] 10 mg PO BID Torsemide 10 mg PO DAILY Albuterol Common Canister [Ventolin Common Canister] 2 puffs IH BID Ubidecarenone [Co Q-10] 200 mg PO DAILY Multivit-Min/FA/Lycopen/Lutein [Centrum Silver Tablet] 1 each PO DAILY Acetaminophen 325 mg [Tylenol 325 mg] 650 mg PO Q6H PRN PRN Reason: Pain Cholecalciferol (Vitamin D3) [Vitamin D3] 25 mcg PO DAILY Discontinued Metoprolol Succinate 25 mg Xl* [Toprol-Xl 25MG Tablets] 25 mg PO DAILY Additional Instructions: ENVIVE [facility] ORDERS: ADMIT TO [facility] CARE REGULAR DIET PT/OT EVAL AND TREAT SEE ATTACHED MED LIST Follow up with: STEPHEN BELLA DO [Primary Care Provider] - Forms: Transfer Record Assisted
[2023-12-13 11:42] VITALS: BP 104/67; PULSE 108; RESP 27; TEMP 96.7; O2SAT 95
== END 2023-12-13 13:13 ==
LOC: ED 20:51 → ICU 12-11 04:47
PROVIDERS: ADMIT Internal Medicine; ATTEND Internal Medicine
DX: I48.20 Chronic atrial fibrillation, unspecified (principal); I11.0 Hypertensive heart disease with heart failure; I50.9 Heart failure, unspecified; E78.5 Hyperlipidemia, unspecified; E87.70 Fluid overload, unspecified; E87.6 Hypokalemia; J40 Bronchitis, not specified as acute or chronic; K21.9 Gastro-esophageal reflux disease without esophagitis; F32.A Depression, unspecified; R17 Unspecified jaundice; W19.XXXA Unspecified fall, initial encounter; Z79.01 Long term (current) use of anticoagulants; Z79.899 Other long term (current) drug therapy
CPT/HCPCS: 36000; 36415; 71046; 72170; 73130; 73552; 73562; 73590; 76705; 80048; 80053; 81001; 82150; 82247; 83690; 83735; 84132; 84134; 84436; 84443; 84484; 85025; 85027; 85610; 85730; 87086; 93005; 93268; 93306; 94640; 96365; 96374; 97110; 97161; 97530; 99285; G0378; Q3014; J0696; J1940; J3480; A9270-GY